=== PATIENT | male | born 1970 | race Caucasian/White ===

== ENCOUNTER 2019-03-17 17:04 | Outpatient (REF) | payer MEDICAID, SELFPAY ==
[2019-03-17 19:03] LABS: Hemoglobin A1C 5.6 % (4.5-6.2)
[2019-03-17 19:14] LABS: Anion Gap 10.8 mmol/L (3-11); BUN 13 mg/dL (7-18); CO2 27.2 mmol/L (21.0-32.0); CREATININE 1.09 mg/dL (0.70-1.30); Calcium 9.1 mg/dL (8.5-10.1); Chloride 105 mmol/L (98-107); Glucose 95 mg/dL (70-100); Sodium 143 mmol/L (136-145); TSH 1.54 uIU/mL (0.358-3.74)
== END 2019-03-17 17:24 ==
LOC: NCHCN 17:04
PROVIDERS: PCP Physician Assistant; Visit Provider Physician Assistant Medical
DX: I10 Essential (primary) hypertension (principal)
CPT/HCPCS: 80048; 83036; 84443

== ENCOUNTER 2019-03-20 11:13 | Outpatient (CLI) | payer MEDICAID, SELFPAY ==
--- NOTE | 2019-03-20 11:00 | DI.RAD_ITS ---
SYMPTOM/DIAGNOSIS: F/U LEFT WRIST: 03/20 Three views were obtained. The wrist is in a splint. No previous films available for comparison. There is moderately displaced, moderately comminuted fracture of the distal radius with associated ulnar styloid fracture.
== END 2019-03-20 11:33 ==
PROVIDERS: PCP Physician Assistant Medical; Visit Provider Orthopaedic Surgery
DX: S52.512A Displaced fracture of left radial styloid process, initial encounter for closed fracture (principal); S52.612A Displaced fracture of left ulna styloid process, initial encounter for closed fracture
CPT/HCPCS: 73110

== ENCOUNTER 2019-04-10 10:13 | Outpatient (CLI) | payer MEDICAID, SELFPAY ==
--- NOTE | 2019-04-10 09:57 | DI.RAD_ITS ---
SYMPTOM/DIAGNOSIS: F/U LEFT WRIST: Images obtained out of the cast demonstrate early healing with no interval change in the appositional alignment of the distal radial fracture fragments. Again noted is a fracture of the ulnar styloid.
== END 2019-04-10 10:33 ==
PROVIDERS: PCP Physician Assistant Medical; Visit Provider Orthopaedic Surgery
DX: S52.512D Displaced fracture of left radial styloid process, subsequent encounter for closed fracture with routine healing; S52.612D Displaced fracture of left ulna styloid process, subsequent encounter for closed fracture with routine healing
CPT/HCPCS: 73100

== ENCOUNTER 2021-05-31 16:24 | Outpatient (REF) | payer MEDICAID, SELFPAY ==
[2021-05-31 20:43] LABS: Hemoglobin A1C 5.8 % (<5.7)
[2021-05-31 21:00] LABS: ALT 63 U/L (16-63); AST 29 U/L (15-37); Albumin 3.9 g/dL (3.4-5.0); Alkaline Phosphatase 78 U/L (46-116); Anion Gap 8.4 mmol/L (3-11); BUN 13 mg/dL (7-18); Bilirubin, Total 0.4 mg/dL (0.2-1.0); CO2 28.6 mmol/L (21.0-32.0); Calcium 8.7 mg/dL (8.5-10.1); Chloride 106 mmol/L (98-107); Glucose 88 mg/dL (74-106); LDL CHOLESTEROL 87 mg/dL (<100); Potassium 4.4 mmol/L (3.5-5.1); Sodium 143 mmol/L (136-145); TSH (W/Ref FT4) 1.84 uIU/mL (0.36-3.74); Total Protein 7.2 g/dL (6.4-8.2)
== END 2021-05-31 16:25 | disposition home or self-care (01) ==
LOC: NCHCN 16:24
PROVIDERS: PCP Physician Assistant Medical; Visit Provider Physician Assistant
DX: E66.9 Obesity, unspecified (principal); I10 Essential (primary) hypertension
CPT/HCPCS: 80053; 83721; 83036; 84443

== ENCOUNTER 2022-08-01 15:00 | Outpatient (CLI) | payer MEDICAID, SELFPAY ==
--- NOTE | 2022-08-01 13:30 | DI.RAD_ITS ---
Exam(s) XR KNEE LT 2V AP,LAT EXAM: XR KNEE LT 2V AP,LAT CLINICAL HISTORY: left knee pain. TECHNIQUE: 2D digital imaging was performed of the left knee. Two images were obtained. AP and lat eral views were obtained. COMPARISON: No exams were available for comparison FINDINGS: BONES: There is an osseous fragment inferior to the patella. The soft tissue shadow representing th e patellar ligament appears thickened and discontinuous suspicious for a tear. The patella has a bassam ewhat high riding location. There is soft tissue swelling anterior to the knee. No bony destructive lesion is seen. JOINTS: No significant joint effusion is seen. SOFT TISSUE: There is swelling of the prepatellar soft tissues. IMPRESSION: Findings suspicious for patellar ligament tear and patellar fracture. Please correlate clinically. MRI of the knee should be considered for further evaluation. DATA REPOSITORY: RADIATION DOSE DELIVERED:
== END 2022-08-01 15:01 | disposition home or self-care (01) ==
LOC: DIORS 15:01
PROVIDERS: PCP Physician Assistant; Referring Provider Physician Assistant; Visit Provider Student in an Organized Health Care Education/Training Program
DX: M25.562 Pain in left knee (principal); R93.6 Abnormal findings on diagnostic imaging of limbs
CPT/HCPCS: 73560

== ENCOUNTER → 2022-08-02 01:28 | Outpatient (CLI) | payer MEDICAID, SELFPAY ==
--- NOTE | 2022-08-02 07:00 | DI.MRI_ITS ---
Exam(s) MR LOWER JOINT LT WO EXAM: MR LOWER JOINT LT WO CLINICAL HISTORY: multiligament knee injury,lt knee dislocation,avulsion lt patellar tendon,. TECHNIQUE: Multiplanar multisequence MRI was performed. COMPARISON: CR XR KNEE LT 2V AP,LAT from 08/01/2022 FINDINGS: BONES: There is no fracture or contusion pattern. JOINTS: There is a small cartilage defect and subchondral edema in the lateral patellar facet. There is a moderate joint effusion. TENDONS: Extensor mechanism: There is a complete tear of the inferior patellar tendon. Medial retinaculum: There is a tear of the medial retinaculum. Lateral retinaculum: Unremarkable. Popliteus: Unremarkable. MUSCLES: There is mild edema seen in the inferior portion of the vastus lateralis muscle. MENISCI: The medial meniscus is unremarkable. The lateral meniscus is unremarkable. SOFT TISSUES: There is edema seen in the soft tissues surrounding the knee. There is a large amount o f fluid seen anterior to the patella. LIGAMENTS: Anterior Cruciate: Unremarkable. Posterior Cruciate: Unremarkable. Medial Collateral:Unremarkable. Lateral Collateral: Unremarkable. OTHER: IMPRESSION: 1. Complete tear of the inferior patellar tendon. 2. Tear of the lateral retinaculum. 3. No evidence of a meniscal or cruciate/collateral ligament tear. 4. Moderate effusion and marked soft tissue edema. DATA REPOSITORY:
== END ==
PROVIDERS: PCP Physician Assistant; Visit Provider Student in an Organized Health Care Education/Training Program
DX: S83.105A Unspecified dislocation of left knee, initial encounter (principal); X58.XXXA Exposure to other specified factors, initial encounter
CPT/HCPCS: 73721

== ENCOUNTER 2022-08-03 11:59 | Day surgery (SDC) | payer MEDICAID, SELFPAY ==
[2022-08-03] VITALS (10 sets, daily range): BP systolic 103–169; BP diastolic 46–97; PULSE 50–81; RESP 10–18; TEMP 36.1–37.1; O2SAT 92–98; BMI 37.3
--- NOTE | 2022-08-03 13:15 | RT.EKG_ITS ---
APPROVED REPORT Exam: Resting ECG Reason for Exam: Irregular HR Patient Location: O HR:68 bpm ECG Measurements Heart Rate 68 AXIS MT 186 P 31 QRSd 89 QRS 12 QT 425 T 33 QTc 449 Conclusion Sinus rhythm...normal P axis, V-rate 60- 99 Multiform ventricular premature complexes...short R-R, variable morphology
--- NOTE | 2022-08-03 13:50 | ANES.PREOP_ITS ---
General Info Date of Service Date Performed: 08/03/22 Height: 6 ft 10 in Weight: 162 kg Body Mass Index (BMI): 37.3 Surgical Procedure: Operation Date: 08/03/22 15:10 Proposed Procedure Side Surgeon p Knee Ruptured Patellar Tendon Repair Left Ulises Singh MD Meds Allergies and Home Medications Allergies Allergy/AdvReac Type Severity Reaction Status Date / Time acetaminophen [From Percocet] AdvReac skin Verified 08/02/22 15:11 oxycodone [From Percocet] AdvReac skin Verified 08/02/22 15:11 Home Medication Medication Instructions Recorded aspirin 81 mg tablet,delayed 81 mg PO BID Prevent blood clot 30 08/03/22 release days #60 tabs hydromorphone 2 mg tablet 2 mg PO Q4H PRN severe pain #12 08/03/22 (Dilaudid) tabs naproxen 250 mg tablet 250 - 500 mg PO BID PRN #40 tabs 08/03/22 Current Visit Medications: Current Medications Generic Name Dose Route Start Last Admin Trade Name Freq PRN Reason Stop Dose Admin Hydromorphone HCl 2 mg 08/03/22 12:19 Hydromorphone 2 Mg Tab PO Q3H PRN PRN Cefazolin Sodium 3,000 mg/ 100 mls @ 200 mls/hr 08/03/22 12:00 Sodium Chloride IVPB 08/03/22 18:00 PREOP HOMERO Ringer's Solution 1,000 mls @ 30 mls/hr 08/03/22 06:00 IV 09/02/22 23:59 INFUSION [facility] IV Miscellaneous Supplies 1 each 08/03/22 06:00 Iv Access IV 09/02/22 23:59 DIRECTED HOMERO Sodium Chloride 0 ml 08/03/22 06:00 Normal Saline Flush 10 Ml Syr IV 09/02/22 23:59 PRN PRN Sodium Chloride 0 ml 08/03/22 06:00 Normal Saline 10 Ml Vial IJ 09/02/22 23:59 DIRECTED PRN Sterile Water 0 ml 08/03/22 06:00 Water,Injection,Sterile 10 Ml Vial IJ 09/02/22 23:59 DIRECTED PRN PFSH Active Problems Active Problems: Problem Status Onset Code Avulsion of left patellar tendon 07/26/22 S86.892A Dislocation of patella, left, closed 07/26/22 S83.005A Medical History Medical History Fracture of distal end of left radius and ulna Surgical History Surgical History History of hernia surgery umbilical and inguinal bilateral Hx of cervical spine surgery 4 fused vertebra Tobacco Smoking/Tobacco Use Status: Never Alcohol Alcohol Intake: current Alcohol intake frequency: a few times a week Alcohol type: hard liquor Substance Use Substance use: Occasionally Substance use type: marijuana Details: CBD Gummy 3nights ago Vital Signs and Lab Results Vital Signs Most Recent Vital Signs in EMR: Most Recent Vital Signs Temp Pulse Resp BP Pulse Ox 37.1 C 50 L 18 127/94 H 95 08/03/22 12:35 08/03/22 12:35 08/03/22 12:35 08/03/22 12:35 08/03/22 12:35 Lab Results Blood Type / Crossmatch: No Data to Display Complete Blood Count: No Data to Display Complete Metabolic Panel: No Data to Display Liver Function Panel: No Data to Display Coagulation Panel: No Data to Display Cardiac Panel: No Data to Display Arterial Blood Gas: No Data to Display Venous Blood Gas: No Data to Display Pancreas Panel: No Data to Display Thyroid Panel: No Data to Display Infectious Disease: No Data to Display Blood Cultures: No Data to Display Toxicology Panel: No Data to Display Imaging and Studies Imaging and Studies Study information below may be from another EMR and interpreted by another provider. Please see original notes in EMR for more complete details. EKG Summary: 08/15: sinus, PVCs. Anesthesia Assessment and Plan Anesthesia History Personal History: No History of Anesthesia Complications Family History: No Family History of Anesthesia Complications Exercise Tolerance Exercise Tolerance: Metabolic Equivalents>4 Cardiac & Pulmonary Exam Cardiac Exam: Normal S1/S2 Heart Sounds Pulmonary Exam: Clear Bilateral Breath Sounds Implantable Cardiac Device Does patient have a Pacemaker or an ICD?: No Airway Exam Known Difficult Airway: No Mallampati Class: 3 Mouth Opening: Narrow (< 3cm) Thyromental Distance: Greater than 3 cm Neck Range of Motion: Full ROM Neck Circumference: Thick Teeth Condition: Normal Dentition and Generalized Poor Dentition ASA Classification ASA Score: ASA 3 Emergency Case?: No NPO Status NPO Status: NPO Clears >2 hours, Solids >8 hours Anesthesia Plan Resuscitation Status: Full Code Anesthesia Technique: General Anesthesia Airway Planned: Endotracheal Tube Pain Management: Surgeon and patient request nerve block Monitors Used: Standard Monitors Preoperative Comments:: 52 yo male with torn patellar tendon. Sig PMHx: never smoker, occ EtOH/cannabis, c spine fusion (good range of motion.
[2022-08-03] MEDS: Lactated Ringers 1,000 ML 30 ML IV (13:54)
--- NOTE | 2022-08-03 14:28 | W.ANESNERVE ---
Nerve Block Single Injection Procedure Date and Time Date Performed: 08/03/22 Procedure Start: 14:10 Location Where Procedure Performed Procedure Location: Day Surgery Unit Reason Performed: Postoperative Analgesia Requesting Provider: Ulises Singh Timeout Performed Timeout Performed: Yes Monitoring Used ECG, Blood Pressure and SpO2 Sterility Sterility: Hand Hygiene, Surgical Cap, Surgical Mask, Sterile Gloves and Chlorhexidine Sedation Given During Procedure Sedation Given (Indicate Dose Given): No Sedation given Patient Mental Status Patient Mental Status: Awake Nerve Block 1st Nerve Block: Laterality: Left Block Type: Adductor Canal Needle / Catheter Used: 120mm SonoPlex II Local Anesthetic Bolus (Indicate Dose Given): Lidocaine used for local infiltration of skin and Bupivacaine 0.375% Dose:: 10 mL Additives (Indicate Dose Given): None Ultrasound: Sterile probe cover and gel used Ultrasound Image Saved?: Yes Nerve Stimulator: Supplement to Ultrasound use Paresthesia: None Procedure Tolerated: No Complications Procedure Outcome: Successful Performed By: Aram Evans
[2022-08-03] MEDS: ceFAZolin 3,000 MG in Normal Saline 100 ML 200 MG IVPB (14:45)
[2022-08-03] MEDS: Bupivacaine 0.5% Pres-Free W/EPI 30 ML VIAL (15:14)
--- NOTE | 2022-08-03 16:40 | W.PM.DSUDISC ---
Date of service: 08/03/22 Time of Service: 16:40 Discharge Plan Disposition Patient Disposition: HOME Condition: Good Discharge Details Reason For Visit: Left knee surgery Attending Provider: Ulises Singh Primary Care Provider: Kailey Martinez Home Meds and New Rx's Prescriptions: New aspirin 81 mg tablet,delayed release (DR/EC) 81 mg PO BID 30 Days Qty: 60 0RF naproxen 250 mg tablet 250 - 500 mg PO BID PRNQty: 40 0RF Rx Instructions: take with a meal hydromorphone [Dilaudid] 2 mg tablet 2 mg PO Q4H MDD 12 mg PRN (Reason: severe pain) Qty: 12 0RF Discontinued ibuprofen 200 mg capsule 200 mg PO Q6H PRN Discharge Instructions Additional Instructions: Surgery: Left knee patellar tendon repair Activity: Weightbearing in full extension only. Use crutches and knee brace for support. Maintain knee straight at all times. A physical therapy prescription will be provided separately in the office at follow-up. Prescriptions: Aspirin 81 mg take 1 twice daily to prevent a blood clot for 30 days Naproxen 250 mg take 1-2 every 12 hours with a meal as needed for moderate pain Hydromorphone 2 mg take 1 every 4 hours as needed for severe pain You may use [id number] Tylenol (acetaminophen) as needed for mild pain. These pain medications may be taken all at once or in different combinations as needed. Also, recommend Colace (docusate) as a stool softener as surgery and pain medicine cause constipation. You may try [id number] diphenhydramine (Benadryl) 25-50 mg nightly as a sleep aid Dressings: Leave Band-Aid in place until follow-up. Keep clean and dry at all times. You may loosen, adjust, or unwrap Duy bandages. Follow-up: 10-[address] Singh You may take off the leg compression stockings this evening at home. You may also leave them on a few days longer if you have a history of leg swelling or edema. Let us know right away if you develop any redness, drainage, fevers, chest pain, or trouble breathing. Do not drink alcohol or drive for at least 24 hours after anesthesia. Please call the office during business hours with any questions or concerns. Discharge Orders Discharge Orders: Discharge Order (Routine); Ordered 08/03/22 Ordered By: Ulises Singh DS: Diagnosis Discharge Diagnosis (1) Avulsion of left patellar tendon: Status: Acute (2) Dislocation of patella, left, closed: Status: Acute
[2022-08-03] MEDS: HYDROmorphone 2 MG/ML SYR IVP ×4 (16:45→17:15)
--- NOTE | 2022-08-03 16:50 | ROE_ITS ---
Date of service: 08/03/22 Time of Service: 16:00 Operative Note Operative Note DATE OF PROCEDURE: 08/03/22 PRE-OP DIAGNOSIS: Left patellar tendon rupture POST-OP DIAGNOSIS: same PROCEDURE: Left patellar tendon repair, CPT #77608 SURGEON: Ulises Singh LITIGATION SPECIALIST: Marissa Norton ANESTHESIA TYPE: Local By Surgeon, General LMA/ETT and Primary Nerve Block Refer to Anesthesia Record ESTIMATED BLOOD LOSS: 30 TOURNIQUET TIME: 0 COMPLICATIONS: None Patient was transported to: PACU Patient's condition: stable Implants: Arthrex 4.75 mm SwiveLock x2 Indications: Please see complete medical record for details. Findings: Complete disruption mid to proximal patellar tendon with extension far medial and lateral retinacular gutters Procedure Description: In the operating room, general anesthesia was induced. The patient was positioned supine on the operating room table. All bony prominences were well- padded. Preoperative antibiotics were administered. The left knee was prepped and draped in the usual sterile fashion. The correct patient, procedure, and side of the procedure were all verified prior to incision. Local anesthetic 0.5% bupivacaine with epinephrine was per injected 30 cc along the longitudinal planned surgical site. The direct anterior approach was taken centered over the patellar tendon disruption down towards the tibial tubercle and over the patella. The ends of the patella and patellar tendon were exposed and lightly debrided. Hemorrhage and fibrinous material was irrigated out of the knee. There was significant tendon fraying and disruption that was somewhat mid substance on the superficial layers and laterally and more proximal deeply and medial. The inferior aspect of the patella was prepared to optimize bone tendon healing with a rongeur. A suture tape was then used to run a Krak?w locking stitch up and down the distal aspect of the tendon medially and then again laterally with the 4 suture tails exiting the tendon at the locations for planned suture anchor repair. The proximal tendon was flipped out of the way in the inferior aspect of the patella predrilled with a 3.5 mm drill to about 20 mm depth and then the SwiveLock tap was used in the hard bone. The knee was placed in full extension and the patella maintained stable and distal while the lateral and then medial repair sutures were secured with good fixation to the SwiveLock anchors. There was reasonable tendon apposition laterally and good tendon apposition medially. The suture tape tails were then passed from deep to superficial and then medial and lateral ends tied securely knotted over the anterior aspect of the tendon to prevent sliding through the suture anchor. Each double loaded suture anchor FiberWire was then used to augment the repair. The blue sutures from each were shuttled from deep to superficial. A free needle was then used to run the white sutures from the suture anchor back through the Krak?w distally and secured with horizontal mattress ripstop type sutures achieving good tendon bone fixation without gapping. Lastly the superficial layers of the tendon especially lateral redraped over the repair and the blue suture tails were passed distally over the top in a barn door style configuration and then secured to themselves horizontally distally. Suture tape was then used in a [id number] fashion to repair the medial and lateral retinaculum and insignificant strength to the repair construct. Given the significance of injury the repair was quite good and stable without gapping to about 30 degrees of flexion. The wound was copiously irrigated normal saline. Deepest layers were closed using 0 Vicryl. 2 Monocryl was used to close subcutaneous and skin with 3-0 Monocryl running. Skin glue, Mepilex bandage applied and the knee gently wrapped in an Duy bandage. A long-leg knee brace was fit and applied in full extension. The patient awoke from anesthesia without complication and was transferred to the recovery room in a stable condition.
[2022-08-03] MEDS: Normal Saline 10 ML VIAL IJ (17:10)
[2022-08-03] MEDS: ACETAMINOPHEN 1,000 MG/100 ML BTL 400 MG IVPB (17:15)
--- NOTE | 2022-08-03 17:44 | W.ANESPOSTOP ---
Postoperative Evaluation Date, Time and Location Date Performed: 08/03/22 Time Performed: 17:45 Patient Location: PACU Vital Signs Most Recent Imported Vital Signs: Most Recent Vital Signs Temp Pulse Resp BP Pulse Ox 36.5 C 68 11 L 115/58 L 92 08/03/22 17:30 08/03/22 17:30 08/03/22 17:30 08/03/22 17:30 08/03/22 17:30 Pain Score Most Recent Pain Score: Most Recent Pain Score Pain Level 5 08/03/22 17:30 Assessment Mental Status: Awake (Alert & Oriented to Patient Baseline) Airway and Respiratory Function: Patent airway with normal (patient baseline) respiratory exam Cardiovascular Function: Hemodynamically Stable Hydration Status: Adequately Hydrated Nausea & Vomiting: No Nausea or Vomiting Pain: Pain is tolerable per patient Peripheral Nerve Block: Regional nerve block not resolved at time of post operative discharge
== END 2022-08-03 18:57 | disposition home or self-care (01) ==
LOC: SUR 12:20 → MS 17:42
PROVIDERS: PCP Physician Assistant; Visit Provider Student in an Organized Health Care Education/Training Program
PROC: (CPT 27380; principal; 2022-08-03 15:00)
DX: S86.812A Strain of other muscle(s) and tendon(s) at lower leg level, left leg, initial encounter (principal); S83.005A Unspecified dislocation of left patella, initial encounter; X50.9XXA Other and unspecified overexertion or strenuous movements or postures, initial encounter
CPT/HCPCS: 27380; 76942; 93005; 93010; J0131; J0690; J1100; J1170; J1885; J2405; J2704

== ENCOUNTER 2022-10-03 17:21 | Outpatient (REF) | payer MEDICAID, SELFPAY ==
[2022-10-03 18:20] LABS: Abs Immature Grans 0.02 10^3/uL (0.0-0.06); Absolute Basophil Count 0.08 10^3/uL (0.0-0.2); Absolute Eosinophil Count 0.44 10^3/uL (0.0-0.7); Absolute Lymphocyte Count 2.18 10^3/uL (1.2-3.4); Absolute Monocyte Count 0.64 10^3/uL (0.1-0.8); Absolute Neutrophil Count 4.84 10^3/uL (1.2-6.7); Eosinophils % 5.4; HCT 46.5 % (40.0-50.0); HGB 15.4 g/dL (13.5-17.5); Immature Grans % 0.2; Lymphocytes % 26.6; MCH 27.6 pg (27.0-33.0); MCHC 33.1 % (32.0-36.0); MCV 84 fL (80-95); MPV 9.7 fL (8.0-11.0); Monocytes % 7.8; Platelet Count 297 10^3/uL (130-400); RBC 5.57 10^6/uL (4.36-5.78); RDW 12.1 % (11.8-14.1)
[2022-10-03 18:37] LABS: ALT 48 U/L (16-63); AST 28 U/L (15-37); Alkaline Phosphatase 68 U/L (46-116); Anion Gap 4.7 mmol/L (3-11); BUN 10 mg/dL (7-18); Bilirubin, Total 0.6 mg/dL (0.2-1.0); CO2 29.3 mmol/L (21.0-32.0); Calcium 8.7 mg/dL (8.5-10.1); Chloride 103 mmol/L (98-107); Glucose 102 mg/dL (74-106); Sodium 137 mmol/L (136-145)
[2022-10-03 20:16] LABS: Hemoglobin A1C 5.5 % (<5.7)
== END 2022-10-03 17:22 | disposition home or self-care (01) ==
LOC: NCHCN 17:21
PROVIDERS: PCP Physician Assistant; Visit Provider Physician Assistant
DX: I10 Essential (primary) hypertension (principal); E66.9 Obesity, unspecified
CPT/HCPCS: 80053; 83036; 85025

== ENCOUNTER 2023-06-24 08:46 | Inpatient (IN) | payer MEDICAID, SELFPAY ==
[2023-06-24] VITALS (7 sets, daily range): BP systolic 127–179; BP diastolic 59–89; PULSE 71–89; RESP 18–20; TEMP 37.1–39.1; O2SAT 92–97
--- NOTE | 2023-06-24 08:52 | W.ED.GENAD ---
Discharge Plan Disposition Patient Disposition: Admit to [facility] Discharge Details Clinical Impression: Cellulitis of right lower leg, PAKO (acute kidney injury) Admit Date/Time: 06/24/23 11:49 Admit Provider: Carlos Olmstead Attending Provider: Carlos Olmstead Primary Care Provider: Kailey Martinez ED Provider: Chauncey Gunn [facility] General Date/Time Provider Initiated Documentation: 06/24/23 08:52. HPI Narrative: HPI This is a 53-year-old male arrived to the emergency department via private vehicle in the setting of right leg swelling. Patient was seen reportedly 2 days ago at [facility] and he had a CT scan and a duplex study performed. CT scan was reportedly reassuring and the duplex study was reportedly negative for DVT. He had worsening swelling and pain despite outpatient cephalexin and trimethoprim/sulfamethoxazole. 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 He is not a smoker nor drinker. He has no history of diabetes. He denies chest pain shortness of breath PE history of DVT history. He has not been nauseous nor vomiting. He has been adherent with his outpatient antibiotics. Exam General: Well-appearing in no acute distress speaking in complete sentences. Head: Normocephalic, atraumatic. Eye: Extraocular eye movements intact. No conjunctival injection. No scleral icterus. Ear, nose, mouth, throat: Grossly normal inspection. Normal voice, handling secretions normally. Neck: Trachea midline. Cardiovascular: Well-perfused distal extremities. Respiratory: Nonlabored respiration. Gastrointestinal: Nondistended abdomen. Musculoskeletal: No edema. Moving all 4 extremities spontaneously. Skin: Right lower extremity with distal erythema warmth inferior to the right knee tracking down into the right foot over the medial malleolus. Area is warm there is 1 bullae. No crepitance. No pain out of proportion. Photo of rash on patient's cell phone from 2 days ago: Photo of rash today as follows: Patient's right foot warm well perfused. Cap refill less than 2 seconds in the right toes. Neurologic: Alert and appropriate, no apparent acute deficits. Psychiatric: Mood and manner are appropriate. Grooming and personal hygiene are appropriate. MDM This is an overall well-appearing normothermic and not tachycardic 53-year-old male failing outpatient treatment for right lower extremity cellulitis with cephalexin and trimethoprim/sulfamethoxazole for which he will require hospitalization. Given the patient's elevated BMI and his significant tenderness on palpation will obtain a CT of his right lower extremity to assess for any signs of necrotizing soft tissue infection. Patient's vital signs are not consistent with SIRS criteria and he does not appear systemically ill so I did not order blood cultures nor check a lactate. We will treat with vancomycin and cefepime. I considered DVT however the patient reportedly had a negative duplex study 2 days ago and has no history of prior DVTs. Given that formal ultrasound is not available today is not unreasonable to initiate treatment for DVT with enoxaparin 1 mg/kg and to consider repeat formal right lower extremity duplex tomorrow with radiology. We will touch base with the hospitalist and defer these decisions at this point time. We will assess basic electrolytes. 9:37 AM CBC showing no significant leukocytosis. No anemia no thrombocytopenia. 9:45 AM Normal magnesium. Basic metabolic panel showing mild hyponatremia. Mild hypokalemia with a potassium of 3.1. Given potassium greater than 3.0 will defer ECG at this point time. No anion gap. Patient does have an PAKO for which he will receive 1 L of IV fluids. Creatinine 1.88, 2 days hyperglycemia but with no anion gap and normal bicarbonate not consistent with DKA. Of note patient received a CTA to assess for PE 2 days ago and he reportedly required an additional dose of IV contrast. 10:[address] scan from [facility] dated 2 days ago showing no evidence of PE. Right lower extremity duplex study showing no sonographic evidence of DVT. MDM from provider showing patient received 2 g of ceftriaxone and was placed on cephalexin 500 mg 4 times daily for 10 days along with trimethoprim/sulfamethoxazole twice daily. Patient at that point had a white count of 23. 11:[address] scan showing inflammatory changes in the subcutaneous flap of the lower extremity. No fluid collection. No obvious soft tissue gas on my interpretation. I spoke to Dr. Arrington who agreed graciously to accept the patient for hospitalization. Chronic conditions affecting the care of the patient: Obesity History obtained from an outside historian: Patient's External record review: No [facility] EMR records Medications: Antibiotics Social determinants of health affecting disposition: N/A Management discussed with: Hospitalist Treatment/interventions considered: Discharge but deferred given failed outpatient management Response to therapies provided: N/A Related Data Home Medications Medication Instructions Recorded Confirmed ibuprofen 200 mg capsule 200 mg PO Q6H PRN 08/15/22 06/24/23 amlodipine 2.5 mg tablet 2.5 mg PO DAILY 11/15/22 06/24/23 chlorthalidone 25 mg tablet 25 mg PO DAILY 12/08/22 06/24/23 cephalexin 500 mg capsule 500 mg PO DAILY 06/24/23 06/24/23 Allergies Allergy/AdvReac Type Severity Reaction Status Date / Time cat dander Allergy Unverified 06/24/23 09:46 acetaminophen [From Percocet] AdvReac skin Verified 06/24/23 09:46 oxycodone [From Percocet] AdvReac skin Verified 06/24/23 09:46 PFSH All Active Problems (Updated 06/24/23 @ 13:44 by Carlos Olmstead MD) Sepsis due to cellulitis (Acute) Cellulitis of right lower leg (Acute) PAKO (acute kidney injury) (Acute) Benign essential HTN (Acute) GERD (gastroesophageal reflux disease) (Chronic) Obesity (Chronic) Osteoarthritis of neck (Acute) Hemorrhoids (Acute) Pain in right forearm (Acute) Pain in right shoulder (Acute) Patellar tendinitis, right knee (Acute) Avulsion of left patellar tendon (Acute 07/26/22) Medical History Dental caries Fracture of distal end of left radius and ulna Posttraumatic stress disorder Surgical History History of hernia surgery umbilical and inguinal bilateral Hx of cervical spine surgery 4 fused vertebra Social History Smoking/Tobacco Use Status: Never Smoking risk assessment performed?: Yes Alcohol Intake: current Alcohol Intake frequency: a few times a week Alcohol type: hard liquor Drug use: Occasionally Substance use type: marijuana Details: LASHAWN Ta 3nights ago Housing: house Current gender identity: male Do you feel safe at home: Yes Do you feel safe in your relationship?: Yes
--- NOTE | 2023-06-24 09:00 | DI.CT_ITS ---
Exam(s) CT LOWER EXTREMITY RT WO EXAM: CT LOWER EXTREMITY RT WO CLINICAL HISTORY: Right lower extremity swelling. TECHNIQUE: Imaging Protocol: Axial computed tomography images with coronal and sagittal reformatted images were created and reviewed. CONTRAST MATERIAL: Intravenous: None COMPARISON: No exams were available for comparison FINDINGS: There are no fractures evident.. No prominent knee joint effusion. There is inflammatory subcutaneous streaking in the subcutaneous fat of the entire lower leg and exte nding into the ankle and foot. This is most prominent anterolaterally. No radiopaque foreign body s een. No distinct abscess seen. IMPRESSION: Inflammatory changes in subcutaneous fat which either represents cellulitis pattern and/or edema. Th ere is no discrete focal abscess. There is no radiopaque foreign body. No fractures nor osteomyelitis evident. RADIATION DOSE DELIVERED: 551.11mGy.cm Total DLP DATA REPOSITORY: All CT scans at this facility are submitted to the National Radiology Data Registry (NRDR) Dose Index Registry (DIR) with the [employer] (ACR). RADIATION OPTIMIZATION: All CT scans at this facility use at least one of these dose optimization te chniques: automated exposure control; mA and/or kV adjustment per patient size (includes targeted exa ms where dose is matched to clinical indication); or iterative reconstruction.
[2023-06-24 09:25] LABS: Absolute Basophil Count 0.09 10^3/uL (0.0-0.2); Absolute Lymphocyte Count 1.09 10^3/uL (1.2-3.4); Absolute Monocyte Count 1.09 10^3/uL (0.1-0.8); Absolute Neutrophil Count 14.88 10^3/uL (1.2-6.7); Basophils % 0.5; Eosinophils % 0.6; HCT 43.3 % (40.0-50.0); HGB 14.5 g/dL (13.5-17.5); Immature Grans % 0.6; Lymphocytes % 6.3; MCH 28.3 pg (27.0-33.0); MCHC 33.5 % (32.0-36.0); MCV 84 fL (80-95); Monocytes % 6.3; Neutrophils % 85.7; Platelet Count 249 10^3/uL (130-400); RBC 5.13 10^6/uL (4.36-5.78); RDW 13.2 % (11.8-14.1); RDW-SD 41.1 fL; WBC 17.36 10^3/uL (4.4-10.8)
[2023-06-24 09:35] LABS: Anion Gap 6.4 mmol/L (3-11); BUN 21 mg/dL (7-18); CO2 31.6 mmol/L (21.0-32.0); CREATININE 1.6 mg/dL (0.70-1.30); Calcium 9.3 mg/dL (8.5-10.1); Chloride 95 mmol/L (98-107); Estimated GFR 50.88 (mL/min/1.73m2); Glucose 125 mg/dL (74-106); Magnesium 2.1 mg/dL (1.8-2.4); Potassium 3.1 mmol/L (3.5-5.1); Sodium 133 mmol/L (136-145)
[2023-06-24] MEDS: CEFEPIME 2 GM in Normal Saline 100 ML IVPB ×3 (09:35→21:16)
[2023-06-24] MEDS: Normal Saline 1,000 ML 1000 ML IV (10:10)
[2023-06-24] MEDS: VANCOMYCIN/WATER (PEG) 2 GM/400 ML BAG IVPB (10:10)
[2023-06-24] MEDS: fentaNYL 100 MCG/2 ML VIAL 50 MCG IVP (10:23)
--- NOTE | 2023-06-24 11:08 | DI.VRAD_ITS ---
PROCEDURE INFORMATION: Exam: CT Right Lower Extremity Without Contrast; Lower Leg Exam date and time: 06/24/2023 10:35 AM Age: 53 years old Clinical indication: Pain; Other: Right lower extremity swelling and redness TECHNIQUE: Imaging protocol: CT of the right lower extremity without contrast was performed. Exam focused on the lower leg. COMPARISON: No relevant prior studies available. FINDINGS: Bones/joints: No acute fracture. Soft tissues: Inflammatory changes in the subcutaneous fat of the lower extremity. This may represent cellulitis and/or edema.. Other findings: No loculated fluid collection identified.. IMPRESSION: 1. Inflammatory changes in the subcutaneous fat of the lower extremity. This may represent cellulitis and/or edema.. 2. No loculated fluid collection identified.. Dictated and Authenticated by: Renuka Jara MD. Ordering:DARIUS Grossman MD
--- NOTE | 2023-06-24 11:52 | W.PM.HP.N ---
Date of service: 06/24/23 Time of Service: 11:52 Assessment and Plan Assessment and plan (1) Sepsis due to cellulitis: Status: Acute Assessment and plan: -patient met sepsis criteria with WBC of 17 and fever of 101.3oF upon arrival to med/surg -cellulitis of RLE appears worse as compared to pictures from previous day provided by patient (please see ED note for uploaded pictures) -patient was initially on bactrim and keflex as outpatient -LE venous duplex ordered for Sunday, though treatment dose anticoagulation not ordered as patient did have negative study just two days ago and does not complain of any chest pain, SOB, or tachycardia (2) PAKO (acute kidney injury): Status: Acute Assessment and plan: -baseline Cr 1, found to be 1.6 -likely due to combination of infection, IV contrast given at outside hospital, and taking home chlothalidone -s/p 1L IVF in ED -f/u AM BMP (3) Benign essential HTN: Status: Acute Assessment and plan: -continue home almodipine -hold home chlorthalidone until PAKO improves (4) Obesity: Status: Chronic History of Present Illness Narrative: 53-year-old male with a past medical history of hypertension and GERD presents to the emergency department with complaints of worsening right lower extremity swelling. Patient states that he was seen at [facility] 2 days prior had a CT and a duplex study of the right lower extremity should not show any abscesses or DVT. He was discharged with Keflex and Bactrim however, he states that the redness and swelling of his right lower extremity have become significantly worse. He denies any lightheadedness, dizziness, shortness of breath, fever. In the emergency department the patient had normal vital signs, CBC showed a white count of 17.3 which is reportedly lower than when he was seen in [facility] where his white blood cell count was in the 20s. Additionally, BMP showed potassium of 3.1, and a creatinine of 1.6 (baseline of 1). Additionally, the patient showed images of his right lower extremity from 2 days prior and does not look worse in the emergency department as compared to that time (please see emergency room physician's note for uploaded pictures). A noncontrast CT of the right lower extremity was performed in the emergency department and showed inflammatory changes in the subcu fat of the lower extremity representing cellulitis or edema but no loculated fluid. Given that it is the weekend lower extremity duplex study is not available. Emergency room physician started patient on vancomycin and cefepime and paged hospitalist for admission for patient with failed outpatient therapy of right lower extremity cellulitis and acute kidney injury. Review of Systems All systems reviewed & are unremarkable except as noted in HPI and below PFSH All Active Problems (Updated 06/24/23 @ 13:44 by Carlos Olmstead MD) Sepsis due to cellulitis (Acute) Cellulitis of right lower leg (Acute) PAKO (acute kidney injury) (Acute) Benign essential HTN (Acute) GERD (gastroesophageal reflux disease) (Chronic) Obesity (Chronic) Osteoarthritis of neck (Acute) Hemorrhoids (Acute) Pain in right forearm (Acute) Pain in right shoulder (Acute) Patellar tendinitis, right knee (Acute) Avulsion of left patellar tendon (Acute 07/26/22) Medical History Dental caries Fracture of distal end of left radius and ulna Posttraumatic stress disorder Surgical History History of hernia surgery umbilical and inguinal bilateral Hx of cervical spine surgery 4 fused vertebra Social History Smoking/Tobacco Use Status: Never Smoking risk assessment performed?: Yes Alcohol Intake: current Alcohol Intake frequency: a few times a week Alcohol type: hard liquor Drug use: Occasionally Substance use type: marijuana Details: CBD Gummy 3nights ago Current gender identity: male Do you feel safe at home: Yes Do you feel safe in your relationship?: Yes Meds Allergies and Home Medications Allergies Allergy/AdvReac Type Severity Reaction Status Date / Time cat dander Allergy Unverified 06/24/23 09:46 acetaminophen [From Percocet] AdvReac skin Verified 06/24/23 09:46 oxycodone [From Percocet] AdvReac skin Verified 06/24/23 09:46 Home Medications Medication Instructions Recorded Confirmed Type ibuprofen 200 mg capsule 200 mg PO Q6H PRN 08/15/22 06/24/23 History amlodipine 2.5 mg tablet 2.5 mg PO DAILY 11/15/22 06/24/23 History chlorthalidone 25 mg tablet 25 mg PO DAILY 12/08/22 06/24/23 History cephalexin 500 mg capsule 500 mg PO DAILY 06/24/23 06/24/23 History Exam Narrative Exam Narrative: Well appearing gentleman laying in bed in no acute distress, AOx4, heart RRR, lungs CTAB, abdomen soft, non-tender, non-distended, RLE with significant circumfrential warmth and erythema from just below the knee to just below the medial malleolus without fluctuation or drainage Results Labs 06/24/23 09:15 06/24/23 09:15 Labs: Laboratory Results - last 24 hr 06/24/23 06/24/23 09:15 09:15 WBC 17.36 H RBC 5.13 Hgb 14.5 Hct 43.3 MCV 84 MCH 28.3 MCHC 33.5 RDW 13.2 Plt Count 249 MPV 10.0 Immature Gran % 0.6 Neutrophils % 85.7 Lymphocytes % 6.3 Monocytes % 6.3 Eosinophils % 0.6 Basophils % 0.5 Nucleated RBC % 0.0 Absolute Neutrophils 14.88 H Absolute Lymphocytes 1.09 L Absolute Monocytes 1.09 H Absolute Eosinophils 0.10 Absolute Basophils 0.09 Sodium 133 L Potassium 3.1 L Chloride 95 L Carbon Dioxide 31.6 Anion Gap 6.4 BUN 21 H Creatinine 1.6 H Est GFR (CKD-EPI 2020) 50.88 Glucose 125 H Calcium 9.3 Magnesium 2.1 Last Vital Signs Temp 98.8 F 06/24/23 08:53 Pulse 83 06/24/23 08:53 Resp 18 06/24/23 08:53 BP 127/59 L 06/24/23 08:53 Pulse Ox 96 06/24/23 08:53 Time Spent Time spent with Patient: >75 minutes Time was spent: preparing to see the patient(eg.review tests), obtaining and/or reviewing separately otained hiistory, ordering medications,tests, procedures, referring, communicating with other health direct support professional caregiver, indepentently interpreting results, counseling the patient and care coordination
[2023-06-24] MEDS: Lactated Ringers 1,000 ML 150 ML IV (14:42)
[2023-06-24] MEDS: Normal Saline Flush 10 ML SYR IVP ×2 (14:45→15:01)
[2023-06-24] MEDS: MORPHine 2 MG/ML SYR 1 MG IVP (15:00)
[2023-06-24] MEDS: Enoxaparin 40 MG/0.4 ML SYR SC (15:01)
[2023-06-24] MEDS: VANCOMYCIN/WATER (PEG) 1.25 GM/250 ML BAG IV (15:51)
[2023-06-24] MEDS: Acetaminophen 325 MG TAB 650 MG PO (15:55)
[2023-06-25] VITALS (12 sets, daily range): BP systolic 123–161; BP diastolic 70–83; PULSE 62–77; RESP 18–20; TEMP 36.6–39.1; O2SAT 91–96
[2023-06-25] MEDS: Lactated Ringers 1,000 ML 150 ML IV ×2 (00:21→08:54)
[2023-06-25] MEDS: LORazepam 0.5 MG TAB PO (00:22)
[2023-06-25] MEDS: Acetaminophen 325 MG TAB 650 MG PO ×4 (00:32→22:11)
[2023-06-25] MEDS: VANCOMYCIN/WATER (PEG) 1.25 GM/250 ML BAG IV ×2 (02:57→16:52)
[2023-06-25] MEDS: MORPHine 2 MG/ML SYR 1 MG IVP ×2 (03:07→22:09)
[2023-06-25] MEDS: CEFEPIME 2 GM in Normal Saline 100 ML IVPB ×3 (06:50→22:09)
--- NOTE | 2023-06-25 07:00 | DI.US_ITS ---
Exam(s) US LOWER EXTREMITY VENOUS RT EXAM: US LOWER EXTREMITY VENOUS RT CLINICAL HISTORY: swelling, erythema, ? DVT TECHNIQUE: Grayscale, color, and doppler imaging of the deep venous system of the right lower extrem ity was performed. COMPARISON: US POCUS EXAM from 08/03/2022 FINDINGS: There is no evidence of intraluminal thrombus and there is normal compression and augmentation demons trated within the common femoral vein, femoral vein, and popliteal vein. In the ipsilateral calf the interrogated veins also exhibit normal compression/ augmentation properti es. The ipsilateral saphenofemoral junction is patent. Prominent lymph nodes in the right groin noted. Probably reactive. IMPRESSION: 1. No evidence of DVT in the right lower extremity. DATA REPOSITORY:
[2023-06-25 07:10] LABS: HCT 37.9 % (40.0-50.0); HGB 12.7 g/dL (13.5-17.5); MCH 28.5 pg (27.0-33.0); MCHC 33.5 % (32.0-36.0); MCV 85 fL (80-95); MPV 10.6 fL (8.0-11.0); Platelet Count 248 10^3/uL (130-400); RBC 4.45 10^6/uL (4.36-5.78); RDW 13.2 % (11.8-14.1); RDW-SD 41.9 fL; WBC 15.98 10^3/uL (4.4-10.8)
[2023-06-25 07:48] LABS: Anion Gap 7.3 mmol/L (3-11); BUN 16 mg/dL (7-18); CO2 29.7 mmol/L (21.0-32.0); CREATININE 1.4 mg/dL (0.70-1.30); Calcium 8.5 mg/dL (8.5-10.1); Chloride 95 mmol/L (98-107); Estimated GFR 59.73 (mL/min/1.73m2); Glucose 99 mg/dL (74-106); Magnesium 1.9 mg/dL (1.8-2.4); Sodium 132 mmol/L (136-145)
[2023-06-25 07:52] LABS: Potassium 2.8 mmol/L (3.5-5.1)
[2023-06-25] MEDS: amLODIPine 2.5 MG TAB PO (08:53)
[2023-06-25] MEDS: Potassium Chloride 20 MEQ TABCR 40 MEQ PO ×2 (08:53→22:09)
--- NOTE | 2023-06-25 09:42 | INITIAL_ITS ---
Date of service: 06/25/23 Time of Service: 09:42 Care Management Initial Assmt Initial Assessment REASON FOR HOSPITALIZATION:: Sepsis, failed o/p therapy of RLE cellulitis, PAKO PREVIOUS FUNCTIONAL STATUS/SOCIAL/FAMILY SUPPORTS:: Sonny lives in [place] with his , Taylor. They have 8 children; 5 are grown and out of the house, 2 still live in the house, and one recently, in April 2023. 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 His is a director of casework department for the same agency (not his director of casework department). He is independent at baseline in the community. CURRENT FUNCTIONAL STATUS:: Chuy was sitting up in bed when CM met with him. He stated that he is feeling good, although he expressed concern over how his leg looks. Chuy is currently on IV abx for cellulitis of his RLE, as he failed outpatient oral antibiotic therapy. CM reviewed options for nursing home IV abx, although his IV abx course remains unclear at this time, awaiting pending blood cultures. hCuy expressed concern about having to be in the hospital for longer than a few days. CM provided reassurance, as the plan is not clear at this point, but it will develop over the next 24-48H, depending on how well he re sponds to IV abx. CM will continue to follow. ADVANCE DIRECTIVES:: Not on file. CM will offer forms. Has patient been provided with info about the portal/API?: Yes Did the patient sign up for the portal?: No CODE STATUS:: Full Code INSURANCE COVERAGE / FINANCIAL ISSUES:: [employer] CURRENT HOME/COMMUNITY SERVICES/EQUIPMENT:: None PRIMARY CARE PHYSICIAN:: Kailey Martinez POTENTIAL DISCHARGE NEEDS:: Evaluations for further needs, follow up appointments. PATIENT/FAMILY EDUCATION NEEDS:: Review discharge instructions and limitations, discussion of self care needs including ask me three. ANTICIPATED BARRIERS TO DISCHARGE:: Failed o/p abx, may require nursing home IV abx TRANSPORTATION:: Via private vehicle by his . PLAN:: Anticipate Sonny will return home once medically cleared. His will drive him home via private vehicle when ready. He will follow up with his PCP and discharge plan of care. CM will continue to follow. PFSH All Active Problems (Updated 06/25/23 @ 12:53 by Candy Murrieta NP) Discharge planning issues (Acute) Hypokalemia (Acute) Sepsis due to cellulitis (Acute) Cellulitis of right lower leg (Acute) PAKO (acute kidney injury) (Acute) Benign essential HTN (Acute) GERD (gastroesophageal reflux disease) (Chronic) Obesity (Chronic) Osteoarthritis of neck (Acute) Hemorrhoids (Acute) Pain in right forearm (Acute) Pain in right shoulder (Acute) Patellar tendinitis, right knee (Acute) Avulsion of left patellar tendon (Acute 07/26/22) Medical History Dental caries Fracture of distal end of left radius and ulna Posttraumatic stress disorder Surgical History History of hernia surgery umbilical and inguinal bilateral Hx of cervical spine surgery 4 fused vertebra Social History Smoking/Tobacco Use Status: Never Smoking risk assessment performed?: Yes Alcohol Intake: current Alcohol Intake frequency: a few times a week Alcohol type: hard liquor Drug use: Occasionally Substance use type: marijuana Details: LASHAWN Ta 3nights ago Housing: house Current gender identity: male Do you feel safe at home: Yes Do you feel safe in your relationship?: Yes
--- NOTE | 2023-06-25 12:44 | W.PM.PROGNOT ---
Date of Service Date of service: 06/25/23 Time of Service: 12:44 Assessment and Plan Assessment and plan (1) Sepsis due to cellulitis: Status: Acute Assessment and plan: -sepsis resolving, hemodynamically stable with normalizing white count, max temp overnight 38.3, no further temp today -patient was initially on bactrim and keflex as outpatient -RLE venous duplex negative for DVT continue vanco/cefepime day 2 continue elevation. (2) PAKO (acute kidney injury): Status: Acute Assessment and plan: -baseline Cr 1, found to be 1.6 on admission, down to 1.4 today -likely due to combination of infection, IV contrast given at outside hospital, and taking home chlothalidone -s/p 1L IVF in ED and fluids overnight, taking good po so will stop IVF -continue to monitor kidney function closely avoid nephrotoxic drugs, renal dose as needed. continue to hold chlorthalidone (3) Benign essential HTN: Status: Acute Assessment and plan: -continue home almodipine -hold home chlorthalidone until PAKO improves (4) Hypokalemia: Status: Acute Assessment and plan: replete and follow, Mag 1.9 (5) Discharge planning issues: Status: Acute Assessment and plan: DVT prophylaxis: enoxaparin anticipate discharge to home with no services. discussed with Dr Arrington Subjective Subjective Patient reports: no new complaints, tolerating liquids well, tolerating a regular diet and afebrile Interval history since last seen: no significant improvement in symptoms but stable. Exam Const General: cooperative and no acute distress Nutritional Appearance: obese Orientation: alert, awake and oriented x3 HENMT Head: normal to inspection, normocephalic and atraumatic Mouth: oral mucosae normal Chest Chest: normal inspection of the chest Resp Effort & Inspection: normal respiratory effort Auscultation: clear to auscultation bilaterally Cardio Rate: regular rate Rhythm: regular rhythm GI Inspection: normal to inspection Skin Rashes: rashes noted (RLE, within markings, bright red and warm, demarcated) Neuro General: patient alert, patient awake, patient oriented x3 and no focal motor deficits Extrem General: full ROM and edema (greater than left, US negative for DVT) Laterality: right Objective Last Vital Signs Temp 36.7 C 06/25/23 11:49 Pulse 62 06/25/23 11:49 Resp 18 06/25/23 11:49 BP 123/83 06/25/23 11:49 Pulse Ox 94 06/25/23 11:49 Laboratory Results - last 24 hr 06/25/23 06/25/23 06:25 06:25 WBC 15.98 H RBC 4.45 Hgb 12.7 L Hct 37.9 L MCV 85 MCH 28.5 MCHC 33.5 RDW 13.2 Plt Count 248 MPV 10.6 Sodium 132 L Potassium 2.8 L* Chloride 95 L Carbon Dioxide 29.7 Anion Gap 7.3 BUN 16 Creatinine 1.4 H Est GFR (CKD-EPI 2020) 59.73 Glucose 99 Calcium 8.5 Magnesium 1.9 Time Spent with Patient Time Spent with Patient: 35-49 minutes Time was spent: preparing to see the patient(eg.review tests), obtaining and/or reviewing separately otained hiistory, ordering medications,tests, procedures and indepentently interpreting results
[2023-06-25] MEDS: Enoxaparin 40 MG/0.4 ML SYR SC (14:47)
[2023-06-25] MEDS: POTASSIUM CHLORIDE 20 MEQ/100 ML BAG 50 MEQ IVPB (22:00)
[2023-06-25] MEDS: Normal Saline Flush 10 ML SYR IVP (22:10)
[2023-06-25] MEDS: Normal Saline 500 ML 30 ML IV (22:10)
[2023-06-26] VITALS (7 sets, daily range): BP systolic 124–171; BP diastolic 76–92; PULSE 72–77; RESP 16–20; TEMP 37–37.4; O2SAT 93–99
--- NOTE | 2023-06-26 | DI.RAD_ITS ---
Exam(s) XR PORTABLE CHEST AP EXAM: XR PORTABLE CHEST AP CLINICAL HISTORY: shortness of breath TECHNIQUE: 2D digital imaging was performed. COMPARISON: No exams were available for comparison FINDINGS: LUNGS: Clear. No pleural abnormality seen. HEART: Normal size. AORTA: Normal diameter. BONES: Metallic densities overlying upper thoracic spine. Soft tissues: Unremarkable. IMPRESSION: No acute findings. DATA REPOSITORY: RADIATION DOSE DELIVERED:
[2023-06-26] MEDS: MORPHine 2 MG/ML SYR 1 MG IVP ×3 (01:32→12:29)
[2023-06-26] MEDS: Normal Saline Flush 10 ML SYR IVP ×2 (01:33→06:15)
[2023-06-26] MEDS: VANCOMYCIN/WATER (PEG) 1.25 GM/250 ML BAG IV ×2 (04:17→16:40)
[2023-06-26] MEDS: CEFEPIME 2 GM in Normal Saline 100 ML IVPB ×3 (06:15→21:49)
[2023-06-26 07:10] LABS: Absolute Basophil Count 0.08 10^3/uL (0.0-0.2); Absolute Eosinophil Count 0.37 10^3/uL (0.0-0.7); Absolute Lymphocyte Count 1.36 10^3/uL (1.2-3.4); Absolute Neutrophil Count 8.11 10^3/uL (1.2-6.7); Basophils % 0.7; Eosinophils % 3.3; HCT 39.4 % (40.0-50.0); Immature Grans % 2.7; Lymphocytes % 12.1; MCH 28.3 pg (27.0-33.0); MCV 86 fL (80-95); MPV 9.8 fL (8.0-11.0); Monocytes % 8.8; Neutrophils % 72.4; Platelet Count 293 10^3/uL (130-400); RDW 13.4 % (11.8-14.1); RDW-SD 41.9 fL
[2023-06-26 07:11] LABS: Absolute Monocyte Count 0.99 10^3/uL (0.1-0.8)
[2023-06-26 07:27] LABS: Anion Gap 5.7 mmol/L (3-11); BUN 14 mg/dL (7-18); CO2 30.3 mmol/L (21.0-32.0); CREATININE 1.4 mg/dL (0.70-1.30); Calcium 9.1 mg/dL (8.5-10.1); Chloride 99 mmol/L (98-107); Estimated GFR 59.73 (mL/min/1.73m2); Glucose 115 mg/dL (74-106); Magnesium 2.1 mg/dL (1.8-2.4); Potassium 3.3 mmol/L (3.5-5.1); Sodium 135 mmol/L (136-145)
[2023-06-26 07:28] LABS: COVID-19 PCR Negative (Negative); Influenza A PCR Negative (Negative); Influenza B PCR Negative (Negative); RSV PCR Negative (Negative)
[2023-06-26 07:29] LABS: Source Nasopharynx
[2023-06-26] MEDS: amLODIPine 2.5 MG TAB PO (07:39)
[2023-06-26] MEDS: Potassium Chloride 20 MEQ TABCR 40 MEQ PO (07:39)
[2023-06-26 08:12] LABS: Lab Add On Test DONE
--- NOTE | 2023-06-26 08:18 | DI.VRAD_ITS ---
PROCEDURE INFORMATION: Exam: XR Chest Exam date and time: 06/26/2023 7:46 AM Age: 53 years old Clinical indication: Shortness of breath TECHNIQUE: Imaging protocol: Radiologic exam of the chest. Views: 1 view. COMPARISON: No relevant prior studies available. FINDINGS: Lungs: Mild pulmonary vascular congestion. Pleural spaces: Right costophrenic angle not imaged. Heart/Mediastinum: Enlarged cardiac silhouette. Bones/joints: Grossly unremarkable. IMPRESSION: 1. No focal consolidation seen. 2. Findings as above. Dictated and Authenticated by: Leydi Arreola MD. Ordering:BRENDA Barnett MD
[2023-06-26 08:37] LABS: NT-proBNP 286 pg/mL (<300)
--- NOTE | 2023-06-26 10:32 | PDOC.CMPRO ---
Date of service: 06/26/23 Time of Service: 10:32 Care Management Progress Note Progress Note Text Progress Note Text: S/O: Chuy was sitting up in his chair when CM met with him today. He stated that he feels well today, and feels that his cellulitis is improving on the IV medication. Per report, his IV abx course remains unclear at this time. Nursing reported that he was feeling short of breath; he was tested for flu and covid which were both negative. CM will continue to follow. A: Sonny is a 53 year old male admitted to [facility] on 06/24/23 for failed o/p therapy of RLE cellulitis. P: Anticipate Sonny will return home once medically cleared. His will drive him home via private vehicle when ready. He will follow up with his PCP and discharge plan of care. CM will continue to follow.
[2023-06-26] MEDS: Normal Saline 500 ML 30 ML IV (10:54)
[2023-06-26] MEDS: POTASSIUM CHLORIDE 20 MEQ/100 ML BAG 50 MEQ IVPB ×2 (10:56→13:14)
[2023-06-26] MEDS: Enoxaparin 40 MG/0.4 ML SYR SC (14:37)
[2023-06-26 17:56] LABS: Vancomycin, Trough 7.2 ug/mL (10.0-20.0)
--- NOTE | 2023-06-26 19:23 | W.PM.PROGNOT ---
Date of Service Date of service: 06/26/23 Time of Service: 10:00 Assessment and Plan Assessment and plan (1) Sepsis due to cellulitis: Status: Acute Assessment and plan: Hemodynamically stable - Tmax 37.4 Continue vanco/cefepime day 3 continue elevation. (2) PAKO (acute kidney injury): Status: Acute Assessment and plan: Cr 1.4 today continue to monitor kidney function closely avoid nephrotoxic drugs, renal dose as needed. continue to hold chlorthalidone, lungs are clear, no edema on left leg (3) Benign essential HTN: Status: Acute Assessment and plan: -continue home almodipine -hold home chlorthalidone until PAKO improves Cr 1.4 (4) Hypokalemia: Status: Acute Assessment and plan: Potassium 3.3 - replete and monitor 2 x 20 meq IVPB ordered and given Mag 2.1 (5) Discharge planning issues: Status: Acute Assessment and plan: DVT prophylaxis: enoxaparin anticipate discharge to home with no services. discussed with Dr Arrington Subjective Subjective Patient reports: no new complaints, still having pain, pain is less, tolerating a regular diet, voiding w/o difficulty, bowel movement and afebrile; denies diarrhea, nausea or vomiting Interval history since last seen: Patient continues to complain of pain, he does not want to take tylenol as he feels it does nothing for his pain, but also is afraid to take morphine - discussed middle of the road pain med, he is allergic to codeine, he is willing to try Tramadol Exam Const General: cooperative and no acute distress Nutritional Appearance: obese Orientation: alert, awake and oriented x3 [facility] Head: normal to inspection, normocephalic and atraumatic Mouth: oral mucosae normal Chest Chest: normal inspection of the chest Resp Effort & Inspection: normal respiratory effort Auscultation: clear to auscultation bilaterally Cardio Rate: regular rate Rhythm: regular rhythm GI Inspection: normal to inspection Skin Rashes: rashes noted (RLE, within markings, bright red and warm, demarcated) Neuro General: patient alert, patient awake, patient oriented x3 and no focal motor deficits Extrem General: full ROM and edema (greater than left, US negative for DVT) Laterality: right Objective Last Vital Signs Temp 37.4 C 06/26/23 15:16 Pulse 74 06/26/23 15:16 Resp 19 06/26/23 15:16 BP 124/78 06/26/23 15:16 Pulse Ox 99 06/26/23 15:16 Laboratory Results - last 24 hr 06/26/23 06/26/23 06/26/23 05:45 06:40 06:40 WBC 11.20 H RBC 4.60 Hgb 13.0 L Hct 39.4 L MCV 86 MCH 28.3 MCHC 33.0 RDW 13.4 Plt Count 293 MPV 9.8 Immature Gran % 2.7 Neutrophils % 72.4 Lymphocytes % 12.1 Monocytes % 8.8 Eosinophils % 3.3 Basophils % 0.7 Nucleated RBC % 0.0 Absolute Neutrophils 8.11 H Absolute Lymphocytes 1.36 Absolute Monocytes 0.99 H Absolute Eosinophils 0.37 Absolute Basophils 0.08 Sodium 135 L Potassium 3.3 L Chloride 99 Carbon Dioxide 30.3 Anion Gap 5.7 BUN 14 Creatinine 1.4 H Est GFR (CKD-EPI 2020) 59.73 Glucose 115 H Calcium 9.1 Magnesium 2.1 NT-Pro-B Natriuret Pep Vancomycin Draw Type Vancomycin Trough COVID-19 Source Nasopharynx SARS-CoV-2 (PCR) Negative Influenza Type A (PCR) Negative Influenza Type B (PCR) Negative RSV (PCR) Negative Add-On Test Request 06/26/23 06/26/23 06/26/23 06:40 06:40 15:03 WBC RBC Hgb Hct MCV MCH MCHC RDW Plt Count MPV Immature Gran % Neutrophils % Lymphocytes % Monocytes % Eosinophils % Basophils % Nucleated RBC % Absolute Neutrophils Absolute Lymphocytes Absolute Monocytes Absolute Eosinophils Absolute Basophils Sodium Potassium Chloride Carbon Dioxide Anion Gap BUN Creatinine Est GFR (CKD-EPI 2020) Glucose Calcium Magnesium NT-Pro-B Natriuret Pep 286 Vancomycin Draw Type Cancelled Vancomycin Trough Cancelled COVID-19 Source SARS-CoV-2 (PCR) Influenza Type A (PCR) Influenza Type B (PCR) RSV (PCR) Add-On Test Request DONE 06/26/23 15:03 WBC RBC Hgb Hct MCV MCH MCHC RDW Plt Count MPV Immature Gran % Neutrophils % Lymphocytes % Monocytes % Eosinophils % Basophils % Nucleated RBC % Absolute Neutrophils Absolute Lymphocytes Absolute Monocytes Absolute Eosinophils Absolute Basophils Sodium Potassium Chloride Carbon Dioxide Anion Gap BUN Creatinine Est GFR (CKD-EPI 2020) Glucose Calcium Magnesium NT-Pro-B Natriuret Pep Vancomycin Draw Type Vancomycin Trough 7.2 L COVID-19 Source SARS-CoV-2 (PCR) Influenza Type A (PCR) Influenza Type B (PCR) RSV (PCR) Add-On Test Request Time Spent with Patient Time Spent with Patient: 35-49 minutes Time was spent: preparing to see the patient(eg.review tests), ordering medications,tests, procedures, referring, communicating with other health healthcare network pricing consultant, indepentently interpreting results, counseling the patient and care coordination
[2023-06-26] MEDS: VANCOMYCIN 1,250 MG in Normal Saline 250 ML 166.667 MG IVPB (23:23)
[2023-06-27] MEDS: Normal Saline Flush 10 ML SYR IVP (02:39)
[2023-06-27] MEDS: MORPHine 2 MG/ML SYR 1 MG IVP ×2 (02:40→06:40)
[2023-06-27] MEDS: Normal Saline 500 ML 30 ML IV (05:26)
[2023-06-27] MEDS: CEFEPIME 2 GM in Normal Saline 100 ML IVPB ×3 (05:27→21:06)
[2023-06-27 07:34] LABS: Abs Immature Grans 0.34 10^3/uL (0.0-0.06); Absolute Basophil Count 0.09 10^3/uL (0.0-0.2); Absolute Eosinophil Count 0.52 10^3/uL (0.0-0.7); Absolute Neutrophil Count 6.99 10^3/uL (1.2-6.7); Basophils % 0.8; Eosinophils % 4.8; HCT 39.3 % (40.0-50.0); HGB 13.1 g/dL (13.5-17.5); Immature Grans % 3.2; Lymphocytes % 16.8; MCH 28.5 pg (27.0-33.0); MCHC 33.3 % (32.0-36.0); MCV 85 fL (80-95); MPV 10.1 fL (8.0-11.0); Monocytes % 9.3; Neutrophils % 65.1; Platelet Count 374 10^3/uL (130-400); RDW 13.3 % (11.8-14.1); RDW-SD 41.7 fL; WBC 10.74 10^3/uL (4.4-10.8)
[2023-06-27 07:49] LABS: Anion Gap 5.5 mmol/L (3-11); BUN 12 mg/dL (7-18); CO2 30.5 mmol/L (21.0-32.0); CREATININE 1.2 mg/dL (0.70-1.30); Chloride 99 mmol/L (98-107); Estimated GFR 71.86 (mL/min/1.73m2); Glucose 116 mg/dL (74-106); Potassium 3.2 mmol/L (3.5-5.1); Sodium 135 mmol/L (136-145)
[2023-06-27 07:54] LABS: C-Reactive Protein 13.38 mg/dL (0.0-0.3)
[2023-06-27 08:00] VITALS: BP 123/77; PULSE 77; RESP 14; TEMP 36.6; O2SAT 94
[2023-06-27] MEDS: Pantoprazole 40 MG TABCR PO (09:19)
[2023-06-27] MEDS: Docusate Sodium 100 MG CAP PO (09:19)
[2023-06-27] MEDS: amLODIPine 2.5 MG TAB PO (09:19)
[2023-06-27] MEDS: traMADol 50 MG TAB 100 MG PO ×2 (09:20→21:55)
[2023-06-27] MEDS: VANCOMYCIN/WATER (PEG) 1.25 GM/250 ML BAG IV (09:23)
--- NOTE | 2023-06-27 09:38 | PDOC.CMPRO ---
Date of service: 06/27/23 Time of Service: 09:38 Care Management Progress Note Progress Note Text Progress Note Text: S/O: Sonny was sitting up in his chair when CM met with him. He stated that he feels that his cellulitis has gotten better with the IV antibiotic therapy. He asked if he should be walking around on his leg, or if he should keep it elevated. Per report, he should continue elevation. His blood cultures are negative to date; IV antibiotic course remains unclear at this time. CM will continue to follow. A: Sonny is a 53 year old male admitted to [facility] on 06/24/23 for failed o/p therapy of RLE cellulitis. P: Anticipate Sonny will return home once medically cleared. His will drive him home via private vehicle when ready. He will follow up with his PCP and discharge plan of care. CM will continue to follow.
--- NOTE | 2023-06-27 11:06 | W.PM.PROGNOT ---
Date of Service Date of service: 06/27/23 Time of Service: 11:06 Assessment and Plan Assessment and plan (1) Sepsis due to cellulitis: Status: Acute Assessment and plan: Hemodynamically stable - no further fevers blood cultures negative to date Continue vanco/cefepime day 4, no significant improvement, will ask surgery to perform biopsy and start steroids. continue elevation. (2) PAKO (acute kidney injury): Status: Resolved Assessment and plan: Cr 1.2 today continue to monitor kidney function closely avoid nephrotoxic drugs, renal dose as needed. continue to hold chlorthalidone, lungs are clear (3) Benign essential HTN: Status: Acute Assessment and plan: -continue home amlodipine -hold home chlorthalidone (4) Hypokalemia: Status: Acute Assessment and plan: Potassium 3.2 - replete and monitor 2 x 20 meq IVPB ordered and given Mag 2.1 (5) Discharge planning issues: Status: Acute Assessment and plan: DVT prophylaxis: enoxaparin anticipate discharge to home with no services. discussed with Dr Arrington Subjective Subjective Patient reports: no new complaints, feels better, tolerating liquids well, tolerating a regular diet, no bowel movement (does not feel constipated, passing flatus) and afebrile Exam Const General: cooperative and no acute distress Nutritional Appearance: obese Orientation: alert, awake and oriented x3 HENMT Head: normal to inspection, normocephalic and atraumatic Mouth: oral mucosae normal Chest Chest: normal inspection of the chest Resp Effort & Inspection: normal respiratory effort Auscultation: clear to auscultation bilaterally Cardio Rate: regular rate Rhythm: regular rhythm GI Inspection: normal to inspection Skin Rashes: rashes noted (RLE, within markings, bright red and warm, demarcated, blisters) Neuro General: patient alert, patient awake, patient oriented x3 and no focal motor deficits Extrem General: full ROM and edema (greater than left, US negative for DVT) Laterality: right Objective Last Vital Signs Temp 36.6 C 06/27/23 08:00 Pulse 77 06/27/23 08:00 Resp 14 06/27/23 08:00 BP 123/77 06/27/23 08:00 Pulse Ox 94 06/27/23 08:00 Laboratory Results - last 24 hr 06/26/23 06/26/23 06/27/23 15:03 15:03 06:30 WBC RBC Hgb Hct MCV MCH MCHC RDW Plt Count MPV Immature Gran % Neutrophils % Lymphocytes % Monocytes % Eosinophils % Basophils % Nucleated RBC % Absolute Neutrophils Absolute Lymphocytes Absolute Monocytes Absolute Eosinophils Absolute Basophils Sodium 135 L Potassium 3.2 L Chloride 99 Carbon Dioxide 30.5 Anion Gap 5.5 BUN 12 Creatinine 1.2 Est GFR (CKD-EPI 2020) 71.86 Glucose 116 H Calcium 9.0 Magnesium 2.0 C-Reactive Protein Vancomycin Draw Type Cancelled Vancomycin Trough Cancelled 7.2 L 06/27/23 06/27/23 06:30 06:45 WBC 10.74 RBC 4.60 Hgb 13.1 L Hct 39.3 L MCV 85 MCH 28.5 MCHC 33.3 RDW 13.3 Plt Count 374 MPV 10.1 Immature Gran % 3.2 Neutrophils % 65.1 Lymphocytes % 16.8 Monocytes % 9.3 Eosinophils % 4.8 Basophils % 0.8 Nucleated RBC % 0.0 Absolute Neutrophils 6.99 H Absolute Lymphocytes 1.80 Absolute Monocytes 1.00 H Absolute Eosinophils 0.52 Absolute Basophils 0.09 Sodium Potassium Chloride Carbon Dioxide Anion Gap BUN Creatinine Est GFR (CKD-EPI 2020) Glucose Calcium Magnesium C-Reactive Protein 13.38 H Vancomycin Draw Type Vancomycin Trough Time Spent with Patient Time Spent with Patient: 25-34 minutes Time was spent: preparing to see the patient(eg.review tests), obtaining and/or reviewing separately otained hiistory, ordering medications,tests, procedures and indepentently interpreting results
[2023-06-27 11:20] VITALS: BP 123/81; PULSE 72; RESP 20; TEMP 36.8; O2SAT 96
[2023-06-27] MEDS: Potassium Chloride 20 MEQ TABCR 40 MEQ PO (11:31)
[2023-06-27] MEDS: Enoxaparin 40 MG/0.4 ML SYR SC (13:15)
--- NOTE | 2023-06-27 14:17 | PHACLINREV_ITS ---
Pharmacy Admission Review Admission Clinical Review Admission Pharmacy Review: (Updated 06/25/23 @ 12:53 by Candy Murrieta NP) Discharge planning issues (Acute) Hypokalemia (Acute) Sepsis due to cellulitis (Acute) Cellulitis of right lower leg (Acute) PAKO (acute kidney injury) (Acute) Benign essential HTN (Acute) cat dander Allergy (Unverified 06/24/23 09:46) acetaminophen [From Percocet] Adverse Reaction (Verified 06/24/23 09:46) skin oxycodone [From Percocet] Adverse Reaction (Verified 06/24/23 09:46) skin Resuscitation Status Full Code Height 5 ft 10.5 in Weight 165.108 kg Comments Comments/Follow Ups: Watch BP, SCr, K+, labs, for culture results and for med ch anges. Pharmacy Admission Review Renal Dosing Renal Dosing: BUN 12 mg/dL (7-18) 06/27/23 06:30 Creatinine 1.2 mg/dL (0.70-1.30) 06/27/23 06:30 Medications needing adjustments: Reviewed (Crcl ~110 mL/min current meds okay) Anticoagulation Anticoagulation: Hgb 13.1 g/dL (13.5-17.5) L 06/27/23 06:30 Hct 39.3 % (40.0-50.0) L 06/27/23 06:30 Plt Count 374 10^3/uL (130-400) 06/27/23 06:30 Creatinine 1.2 mg/dL (0.70-1.30) 06/27/23 06:30 DVT Prophylaxis: N/A Therapeutic Anticoagulation: Reviewed Medications: Apixaban Opiate Usage Evaluate Pain Scale/Pains Meds: Reviewed Scheduled Bowel Reg ordered if on Opiates?: No (has PRN meds ordered) Relevant Labs Relevant Labs: Sodium 135 mmol/L (136-145) L 06/27/23 06:30 Potassium 3.2 mmol/L (3.5-5.1) L 06/27/23 06:30 Chloride 99 mmol/L (98-107) 06/27/23 06:30 Magnesium 2.0 mg/dL (1.8-2.4) 06/27/23 06:30 C-Reactive Protein 13.38 mg/dL (0.0-0.3) H 06/27/23 06:45 Electrolytes, C-Reactive P, ESR: Reviewed (PO K+ replacement ordered) DM Control DM Control: Reviewed (No DM noted in pt's medical history, A1c from 09/2022 was 5.5.) Cardiac Review Cardiac Review: NT-Pro-B Natriuret Pep 286 pg/mL (<300) 06/26/23 06:40 BP, HR, EF%: Reviewed (HR has been within normal limits and BP has been normal to high so far this admission.) QTc Review QTc: N/A IV to PO Switch IV Medications: Reviewed Home Meds Home Med List reviewed: Reviewed (cephalexin (has other abx ordered), chlorthalidone (being held until PAKO improves per H&P), ibuprofen (PRN)) Current Meds Current Medication Order Review: Reviewed Pharmacy Antibiotic Review Relevant Labs: Relevant Labs 06/27/23 06:45 C-Reactive Protein 13.38 H Pharmacy Antibiotic Activity: 48 hour review, Abx regimen adjustment and C/S review Comments: BC no growth @48H. Cefepime and vanco continue for sepsis due to cellulitis per progress note (day 4). Vanco trough drawn yesterday and was low, dose adjusted per protocol. Comments Comments/Follow Ups: Watch BP, SCr, K+, labs, for culture results and for med changes.
--- NOTE | 2023-06-27 16:15 | SKI_PTH ---
PATIENT: Sonny Groves LOC: U#:[id number] AGE/SX: 53/M ROOM: 208 RE06/24/[address]: Carlos Olmstead MD : 1970 BED: A DIS: 06/28/2023 SPEC #: [id number] RECD: 06/27/23 17:16 STATUS: RICKIE REQ #: [id number] FAB: 06/27/23 16:[address]: Carlos Olmstead DEPT: Surgical Specimen RECD BY: Francesca Hairston ENTERED: 06/27/23 17:17 SP TYPE: SKI IMTIAZ DR: MD Michelle Marie Kelsey Tissues: 1 - SKIN BIOPSY(SHAVE/PUNCH) Procedures: SKIN LEVEL 4 Comments: [id number]
[2023-06-27] MEDS: methylPREDNISolone SUCC 125 MG VIAL 60 MG IVP (16:17)
[2023-06-27] MEDS: VANCOMYCIN/WATER (PEG) 1 GM/200 ML BAG IV ×2 (16:18→21:50)
[2023-06-27] MEDS: Potassium Chloride 20 MEQ TABCR PO (16:18)
--- NOTE | 2023-06-27 16:36 | W.SURGCON ---
Date of service: 06/27/23 Time of Service: 16:37 Assessment and Plan Assessment and plan (1) Cellulitis of right lower leg: Status: Acute Assessment and plan: 53 year old male with edema, redness and blistering of his RLE below the knee. There is no erash anywhere else. Recommend punch biopsy. Recommend prednisone Continue antibiotics until we have a diagnoses Punch biopsy was explained to the patient as well as the possible risks and complications. Complicastions include but are not limited to bleeding, infection. The patient understands and wishes to proceed. History of Present Illness Narrative: From the H&P: 53-year-old male with a past medical history of hypertension and GERD presents to the emergency department with complaints of worsening right lower extremity swelling. Patient states that he was seen at [facility] 2 days prior had a CT and a duplex study of the right lower extremity that did not show any abscesses or DVT.? He was discharged with Keflex and Bactrim however, he states that the redness and swelling of his right lower extremity have become significantly worse.? He denies any lightheadedness, dizziness, shortness of breath, fever. In the emergency department the patient had normal vital signs, CBC showed a white count of 17.3 which is reportedly lower than when he was seen in [facility] where his white blood cell count was in the 20s.? Additionally, BMP showed potassium of 3.1, and a creatinine of 1.6 (baseline of 1).? A noncontrast CT of the right lower extremity was performed in the emergency department and showed inflammatory changes in the subcu fat of the lower extremity representing cellulitis or edema but no loculated fluid.? Given that it is the weekend lower extremity duplex study is not available.? Emergency room physician started patient on vancomycin and cefepime and paged hospitalist for admission for patient with failed outpatient therapy of right lower extremity cellulitis and acute kidney injury. I was asked to see the patient because his cellulitis has not improved. The patient states he has no pain. He just feels like his right LE below the knee is tight. He has had no fevers since admission. He did have a WBC count on admission which has now resolved. He has been on Vancomysis since his admission. He also tells me that the swelling and cellulitis started after he had what he thought was a bad case of the flu. Consults Consult date: 06/27/23 Requesting physician: Candy Murrieta Review of Systems Constitutional Constitutional: Denies excessive sweating, Denies fever(s), Denies headache(s), Denies malaise, Denies poor appetite, Denies weakness and Denies weight loss Eyes Eyes: Denies change in vision ENT Ears, Nose, Mouth, and Throat: Denies change in voice, Denies dysphagia and Denies headache(s) Cardiovascular Cardiovascular: Denies chest pain, Denies irregular heart rhythm, Denies palpitations, Denies dyspnea and Denies dyspnea on exertion Respiratory Respiratory: Denies cough, Denies dyspnea and Denies dyspnea on exertion Gastrointestinal Gastrointestinal: Reports system reviewed and no additional complaints, except as documented and Denies dysphagia Genitourinary Genitourinary: Denies difficulty urinating and Denies dysuria Musculoskeletal Musculoskeletal: Denies arthralgias Integumentary/Breasts Skin/Breast: Reports as per HPI Neurologic Neurologic: Reports system reviewed and no additional complaints, except as documented, Denies headache(s) and Denies weakness Psychiatric Psychiatric: Reports system reviewed and no additional complaints, except as documented Endocrine Endocrine: Denies excessive sweating and Denies palpitations PFSH All Active Problems Discharge planning issues (Acute) Hypokalemia (Acute) Sepsis due to cellulitis (Acute) Cellulitis of right lower leg (Acute) Benign essential HTN (Acute) GERD (gastroesophageal reflux disease) (Chronic) Obesity (Chronic) Osteoarthritis of neck (Acute) Hemorrhoids (Acute) Pain in right forearm (Acute) Pain in right shoulder (Acute) Patellar tendinitis, right knee (Acute) Avulsion of left patellar tendon (Acute 07/26/22) Medical History Dental caries Fracture of distal end of left radius and ulna Posttraumatic stress disorder Surgical History History of hernia surgery umbilical and inguinal bilateral Hx of cervical spine surgery 4 fused vertebra Social History Smoking/Tobacco Use Status: Never Smoking risk assessment performed?: Yes Alcohol Intake: current Alcohol Intake frequency: a few times a week Alcohol type: hard liquor Drug use: Occasionally Substance use type: marijuana Details: CBD Gummy 3nights ago Housing: house Current gender identity: male Do you feel safe at home: Yes Do you feel safe in your relationship?: Yes Exam Const General: cooperative, comfortable and no acute distress Nutritional Appearance: overweight Orientation: alert and oriented x3 HENMT Head: normocephalic and atraumatic Resp Effort & Inspection: normal respiratory effort Extrem Other: RLE below the knee: There is edema, redness and blistering of the skin. There are also areas of bruising/ecchymosis. NOt tender to touch. Results Last Vital Signs Temp 98.2 F 06/27/23 11:20 Pulse 72 06/27/23 11:20 Resp 20 06/27/23 11:20 BP 123/81 06/27/23 11:20 Pulse Ox 96 06/27/23 11:20 Labs 06/27/23 06:30 06/27/23 06:30 Labs: Laboratory Results - last 24 hr 06/26/23 06/26/23 06/27/23 15:03 15:03 06:30 WBC RBC Hgb Hct MCV MCH MCHC RDW Plt Count MPV Immature Gran % Neutrophils % Lymphocytes % Monocytes % Eosinophils % Basophils % Nucleated RBC % Absolute Neutrophils Absolute Lymphocytes Absolute Monocytes Absolute Eosinophils Absolute Basophils Sodium 135 L Potassium 3.2 L Chloride 99 Carbon Dioxide 30.5 Anion Gap 5.5 BUN 12 Creatinine 1.2 Est GFR (CKD-EPI 2020) 71.86 Glucose 116 H Calcium 9.0 Magnesium 2.0 C-Reactive Protein Vancomycin Draw Type Cancelled Vancomycin Trough Cancelled 7.2 L 06/27/23 06/27/23 06:30 06:45 WBC 10.74 RBC 4.60 Hgb 13.1 L Hct 39.3 L MCV 85 MCH 28.5 MCHC 33.3 RDW 13.3 Plt Count 374 MPV 10.1 Immature Gran % 3.2 Neutrophils % 65.1 Lymphocytes % 16.8 Monocytes % 9.3 Eosinophils % 4.8 Basophils % 0.8 Nucleated RBC % 0.0 Absolute Neutrophils 6.99 H Absolute Lymphocytes 1.80 Absolute Monocytes 1.00 H Absolute Eosinophils 0.52 Absolute Basophils 0.09 Sodium Potassium Chloride Carbon Dioxide Anion Gap BUN Creatinine Est GFR (CKD-EPI 2020) Glucose Calcium Magnesium C-Reactive Protein 13.38 H Vancomycin Draw Type Vancomycin Trough Procedures Other Procedure Description/Findings: Pre-op Dx: celulitis vs skin rash Post-op Dx: same Procedure: 3 mm punch biopsies x2 Surgeon: Olivier Crutis MD Anesthesia: 1% Lidocaine with epi Blood loss: 25 cc Specimen: tissue Complications: no immediate complications Procedure: After informed consent was obtained the patient was placed in a supine position. The skin was cleaned with alcohol and infiltrated with the above local anesthetic. The skin in 2 different areas was prepped with chlorhexedine and punch biopsy of both areas was done. The specimen was placed on telfa and into formalin. Pressure was held with 4x4 and once the bleeding had slowed down Mepilex border dressings were applied. The patient tolerated the procedure well and there were no immediate complications.
[2023-06-27 17:39] LABS: Lab Add On Test DONE
[2023-06-27 18:27] LABS: Procalcitonin 0.5 ng/mL
[2023-06-27 19:46] VITALS: BP 128/85; PULSE 67; RESP 18; TEMP 36.3; O2SAT 96
[2023-06-27 23:36] VITALS: BP 135/83; PULSE 77; RESP 16; TEMP 36.5; O2SAT 95
[2023-06-28 02:52] VITALS: BP 168/99; PULSE 83; RESP 16; TEMP 36.5; O2SAT 98
[2023-06-28] MEDS: VANCOMYCIN/WATER (PEG) 1 GM/200 ML BAG IV (03:05)
[2023-06-28] MEDS: CEFEPIME 2 GM in Normal Saline 100 ML IVPB (05:17)
[2023-06-28 07:04] LABS: Basophils % 0.5; Eosinophils % 0.5; HCT 40.7 % (40.0-50.0); HGB 13.7 g/dL (13.5-17.5); Immature Grans % 2.9; Lymphocytes % 10.7; MCH 28.7 pg (27.0-33.0); MCHC 33.7 % (32.0-36.0); MCV 85 fL (80-95); MPV 9.8 fL (8.0-11.0); Monocytes % 5.2; Neutrophils % 80.2; Platelet Count 456 10^3/uL (130-400); RBC 4.78 10^6/uL (4.36-5.78); RDW-SD 40.2 fL; WBC 17.36 10^3/uL (4.4-10.8)
[2023-06-28 07:07] LABS: Absolute Basophil Count 0.09 10^3/uL (0.0-0.2); Absolute Eosinophil Count 0.09 10^3/uL (0.0-0.7); Absolute Lymphocyte Count 1.86 10^3/uL (1.2-3.4); Absolute Neutrophil Count 13.92 10^3/uL (1.2-6.7)
[2023-06-28 07:25] LABS: Anion Gap 8.2 mmol/L (3-11); BUN 13 mg/dL (7-18); C-Reactive Protein 8.78 mg/dL (0.0-0.3); CO2 26.8 mmol/L (21.0-32.0); CREATININE 1.1 mg/dL (0.70-1.30); Calcium 9.1 mg/dL (8.5-10.1); Chloride 97 mmol/L (98-107); Estimated GFR 79.77 (mL/min/1.73m2); Glucose 114 mg/dL (74-106); Sodium 132 mmol/L (136-145)
[2023-06-28] MEDS: amLODIPine 2.5 MG TAB PO (07:55)
[2023-06-28] MEDS: Pantoprazole 40 MG TABCR PO (07:55)
[2023-06-28] MEDS: Potassium Chloride 20 MEQ TABCR PO (07:55)
[2023-06-28] MEDS: methylPREDNISolone SUCC 125 MG VIAL 60 MG IVP (07:55)
[2023-06-28 08:04] VITALS: BP 136/79; PULSE 81; RESP 20; TEMP 36.5; O2SAT 92
--- NOTE | 2023-06-28 10:10 | PDOC.CMPRO ---
Date of service: 06/28/23 Time of Service: 10:11 Care Management Progress Note Progress Note Text Progress Note Text: S/O: A: Sonny is a 53 year old male admitted to [facility] on 06/24/23 for failed o/p therapy of RLE cellulitis. P: Anticipate Sonny will return home once medically cleared. His will drive him home via private vehicle when ready. He will follow up with his PCP and discharge plan of care. CM will continue to follow.
--- NOTE | 2023-06-28 10:57 | DSE_ITS ---
Date of service: 06/28/23 Time of Service: 11:49 DS: Diagnosis Discharge Diagnosis (1) Sepsis due to cellulitis: Status: Acute Asessment and Plan: -patient initially admitted with sepsis secondary to failed outpatient therapy o RLE cellulitis -he met sepsis criteria with WBC 17, and temp of 101.3oF with worsening of RLE cellulitis that had been treated with keflex and bactrim -started on vanc and cefepime on admission with improvement in sepsis pathology, pain and erythema -punch biopsy taken due to concerns of ongoing erythema, as well as initiation of prednisone for concerns of vasculitis -patient being discharged with an additional 5 days of PO doxy and amox to cover cellulitis, as well as PO prednisone 40mg daily for an additional 5 days -punch biosy results pending at time of discharge Discharge Plan Disposition Patient Disposition: Home Condition: Stable Discharge Details Reason For Visit: Failed outpatient therapy of RLE cellulitis,PAKO Admit Date/Time: 06/24/23 11:49 Admit Provider: Carlos Olmstead Attending Provider: Carlos Olmstead Primary Care Provider: Kailey Martinez Hospital Course Hospital Course: Patient initially presented with worsening swelling, redness and erythema secondary to failed outpatient therapy for RLE cellulitis for which he met sepsis criteria. He was initially treated with IV vanc and cefepime, but due to concerns of a lack of improvement he was also started on prednisone and had a punch biopsy for concerns for possible vasculitis. Biopsy results were not available at time of discharge, but patient did experience significant improvement. Therefore he is being discharged with a prednisone and PO antibiotics. Home Meds and New Rx's Prescriptions: New amoxicillin 875 mg tablet 875 mg PO BID Qty: 10 0RF doxycycline monohydrate 100 mg capsule 100 mg PO BID 7 Days Qty: 10 0RF prednisone 20 mg tablet 40 mg PO DAILY Qty: 10 0RF Continued amlodipine 2.5 mg tablet 2.5 mg PO DAILY ibuprofen 200 mg capsule 200 mg PO Q6H PRN chlorthalidone 25 mg tablet 25 mg PO DAILY Discontinued cephalexin 500 mg capsule 500 mg PO DAILY Discharge Instructions Instructions: Cellulitis (DC) Stand Alone Forms: Nursing Discharge Form Referrals: Kailey Martinez [Primary Care Provider] - 07/12/23 11:00 am Activity:: Activity as Tolerated Equipment/Supplies:: No Equipment Needed Diet:: As Tolerated Discharge Orders Discharge Orders: Discharge Order (Routine); Ordered 06/28/23 Ordered By: Carlos Olmstead Discharge Data Discharge Date/Time-TO BE ENTERED AT DEPARTURE: 06/28/23 11:44 DS: Summary Time Spent with Patient providing and/or coordinating discharge services: Greater than 30 minutes Status at Discharge Functional status at discharge: independent ambulation Overall status at discharge: patient is back to baseline Mental Status: mental status grossly normal Speech and Movement: speech and movement normal Mood: congruent mood Affect: normal affect Exam Narrative Exam Narrative: Well appearing gentleman laying in bed in no acute distress, AOx4, heart RRR, lungs CTAB, RLE erythema and swelling improved as compared to day of admission with recession from drawn demarcations lines Psych Mental Status: mental status grossly normal Speech and Movement: speech and movement normal Mood: congruent mood Affect: normal affect DS: Data Vitals/I&O Vitals and I&O: Vital Signs Temperature 97.7 F 06/28/23 08:04 Temperature Source Temporal Artery Scan 06/28/23 08:04 Pulse 81 06/28/23 08:04 Pulse Rhythm Regular 06/27/23 10:07 Respiratory Rate 20 06/28/23 08:04 Respiratory Effort Normal, Non-Labored 06/28/23 08:09 Respiratory Depth Normal 06/27/23 10:07 Respiratory Pattern Normal 06/27/23 10:07 Blood Pressure 136/79 06/28/23 08:04 Blood Pressure Position Sitting 06/24/23 08:53 Pulse Oximetry 92 06/28/23 08:04 Oxygen Delivery Method Room Air 06/28/23 08:04 Oxygen Flow Rate 0 06/28/23 08:04 Pain Level 6 06/28/23 08:04 Comment TEMP called over radio 06/24/23 15:34 Intake & Output 06/27/23 06/28/23 06/28/23 17:59 05:59 17:59 Intake Total 650 / 650 300 / 950 800 / 800 Output Total 350 / 350 Balance 650 / 650 -50 / 600 800 / 800 Intake: IV 650 / 650 300 / 950 800 / 800 Output: Urine 350 / 350 Other: Urine Color Yellow Urine Appearance Clear Clear Clear Urine Odor Normal Voiding Methods Urinal Data Completed and Pending Labs on day of discharge: Labs from last 24 hours 06/28/23 06/28/23 06/27/23 06:04 06:04 06:30 WBC 17.36 H RBC 4.78 Hgb 13.7 Hct 40.7 MCV 85 MCH 28.7 MCHC 33.7 RDW 13.0 Plt Count 456 H MPV 9.8 Immature Gran % 2.9 Neutrophils % 80.2 Lymphocytes % 10.7 Monocytes % 5.2 Eosinophils % 0.5 Basophils % 0.5 Nucleated RBC % 0.0 Absolute Neutrophils 13.92 H Absolute Lymphocytes 1.86 Absolute Monocytes 0.90 H Absolute Eosinophils 0.09 Absolute Basophils 0.09 Sodium 132 L Potassium 4.0 Chloride 97 L Carbon Dioxide 26.8 Anion Gap 8.2 BUN 13 Creatinine 1.1 Est GFR (CKD-EPI 2020) 79.77 Glucose 114 H Calcium 9.1 C-Reactive Protein 8.78 H Procalcitonin 0.5 Add-On Test Request 06/27/23 06:30 WBC RBC Hgb Hct MCV MCH MCHC RDW Plt Count MPV Immature Gran % Neutrophils % Lymphocytes % Monocytes % Eosinophils % Basophils % Nucleated RBC % Absolute Neutrophils Absolute Lymphocytes Absolute Monocytes Absolute Eosinophils Absolute Basophils Sodium Potassium Chloride Carbon Dioxide Anion Gap BUN Creatinine Est GFR (CKD-EPI 2020) Glucose Calcium C-Reactive Protein Procalcitonin Add-On Test Request DONE Preliminary micro results at discharge 06/24/23 14:38 Blood Culture - Preliminary Blood NO GROWTH 72 HOURS 06/24/23 14:19 Blood Culture - Preliminary Blood NO GROWTH 72 HOURS PFSH All Active Problems Discharge planning issues (Acute) Hypokalemia (Acute) Sepsis due to cellulitis (Acute) Cellulitis of right lower leg (Acute) Benign essential HTN (Acute) GERD (gastroesophageal reflux disease) (Chronic) Obesity (Chronic) Osteoarthritis of neck (Acute) Hemorrhoids (Acute) Pain in right forearm (Acute) Pain in right shoulder (Acute) Patellar tendinitis, right knee (Acute) Avulsion of left patellar tendon (Acute 07/26/22) Medical History Dental caries Fracture of distal end of left radius and ulna Posttraumatic stress disorder Surgical History History of hernia surgery umbilical and inguinal bilateral Hx of cervical spine surgery 4 fused vertebra Social History Smoking/Tobacco Use Status: Never Smoking risk assessment performed?: Yes Alcohol Intake: current Alcohol Intake frequency: a few times a week Alcohol type: hard liquor Drug use: Occasionally Substance use type: marijuana Details: CBD Gummy 3nights ago Housing: house Current gender identity: male Do you feel safe at home: Yes Do you feel safe in your relationship?: Yes Time Spent with Patient Time Spent with Patient: <45 minutes (35) Time was spent: preparing to see the patient(eg.review tests), obtaining and/or reviewing separately otained hiistory, referring, communicating with other health critical care clinical nurse specialist, indepentently interpreting results, counseling the patient and care coordination
--- NOTE | 2023-06-28 16:12 | PDOC.CMDIS ---
Date of service: 06/28/23 Time of Service: 16:12 LACE Index Scoring Tool Questions: Length of Stay (in days): 4 - 6 Was the patient admitted via the E.D.?: Yes E.D. Visits: 0 Answers: Total Score: 7 Risk of Readmission: Low Risk Care Management Discharge Plan Reason for Hospitalization: Sepsis, failed o/p therapy of RLE cellulitis, PAKO Discharge Plan: Sonny returned home today with no new services. His drove him home via private vehicle. He will follow up with his PCP and discharge plan of care. He is happy to be going home. Patient/Family Education Needs: Review discharge instructions and limitations, discussion of self care needs including ask me three.
--- NOTE | 2023-06-28 16:36 | CHAPLAIN ---
Sonny was up in the chair when I visited yesterday. I introduced myself and offered support. He's in touch with family and feeling bored here, hoping to go home soon.
== END 2023-06-28 11:44 | disposition home or self-care (01) | DRG 872 ==
LOC: ER 11:55 → MS 13:13
PROVIDERS: Family Medicine; Internal Medicine; Nurse Practitioner Acute Care; Nurse Practitioner Family; Admitting Provider Family Medicine; Emergency Provider Emergency Medicine; PCP Physician Assistant; Visit Provider Family Medicine
DX: A41.9 Sepsis, unspecified organism (principal); N17.9 Acute kidney failure, unspecified; L03.115 Cellulitis of right lower limb; I96 Gangrene, not elsewhere classified; E66.9 Obesity, unspecified; E87.6 Hypokalemia; F42.4 Excoriation (skin-picking) disorder; I10 Essential (primary) hypertension; K21.9 Gastro-esophageal reflux disease without esophagitis; M47.812 Spondylosis without myelopathy or radiculopathy, cervical region; Z98.1 Arthrodesis status; F12.90 Cannabis use, unspecified, uncomplicated
CPT/HCPCS: 11104; 11105; 36415; 80048; 84145; 85027; 87040; 87637; 96365; 96368; 96376; 99285; J1650; 71045; 73700; 80202; 83735; 83880; 85025; 86140; 88305; 93971; 99223; 99232; 99233; 99239; J2270; J2930; J3010; J3480

== ENCOUNTER 2023-07-05 11:24 | Inpatient (IN) | payer MEDICAID, SELFPAY ==
[2023-07-05] VITALS (30 sets, daily range): BP systolic 116–143; BP diastolic 70–105; PULSE 55–82; RESP 18; TEMP 36.8; O2SAT 83–98
[2023-07-05 11:57] LABS: Abs Immature Grans 0.03 10^3/uL (0.0-0.06); Absolute Basophil Count 0.09 10^3/uL (0.0-0.2); Absolute Eosinophil Count 0.22 10^3/uL (0.0-0.7); Absolute Monocyte Count 0.76 10^3/uL (0.1-0.8); Absolute Neutrophil Count 5.72 10^3/uL (1.2-6.7); Eosinophils % 2.4; HCT 40.8 % (40.0-50.0); HGB 13.4 g/dL (13.5-17.5); Immature Grans % 0.3; Lactate 1.2 mmol/L (0.6-1.4); Lymphocytes % 25.2; MCH 27.9 pg (27.0-33.0); MCHC 32.8 % (32.0-36.0); MCV 85 fL (80-95); MPV 9.2 fL (8.0-11.0); Monocytes % 8.3; Neutrophils % 62.8; Platelet Count 408 10^3/uL (130-400); RBC 4.81 10^6/uL (4.36-5.78); RDW 12.9 % (11.8-14.1); RDW-SD 40.1 fL; WBC 9.12 10^3/uL (4.4-10.8)
[2023-07-05 12:18] LABS: ALT 46 U/L (16-63); AST 19 U/L (15-37); Alkaline Phosphatase 84 U/L (46-116); Anion Gap 6.1 mmol/L (3-11); BUN 19 mg/dL (7-18); Bilirubin, Total 0.6 mg/dL (0.2-1.0); CO2 30.9 mmol/L (21.0-32.0); CREATININE 1.2 mg/dL (0.70-1.30); Chloride 100 mmol/L (98-107); Estimated GFR 71.86 (mL/min/1.73m2); Glucose 116 mg/dL (74-106); Potassium 3.1 mmol/L (3.5-5.1); Sodium 137 mmol/L (136-145); Total Protein 8.3 g/dL (6.4-8.2)
--- NOTE | 2023-07-05 12:30 | DI.US_ITS ---
Exam(s) US LOWER EXTREMITY VENOUS RT EXAM: US LOWER EXTREMITY VENOUS RT CLINICAL HISTORY: swelling, pain TECHNIQUE: Right lower extremity venous ultrasound performed using grayscale, color-flow, and spectr al Doppler analysis. COMPARISON: US US LOWER EXTREMITY VENOUS RT from 06/25/2023 FINDINGS: The right common femoral, femoral and popliteal veins demonstrate normal compressibility, augmentatio n, and color Doppler. The posterior tibial vein ins are patent. The saphenofemoral junction is unrem arkable. There is no evidence of a Hough cyst. There are heterogeneously enlarged inguinal lymph no ivonne. The largest measures 2.8 x 1.2 cm. IMPRESSION: 1. No evidence of a right lower extremity DVT. 2. Enlarged heterogeneous right inguinal lymph nodes. DATA REPOSITORY:
[2023-07-05] MEDS: POTASSIUM CHLORIDE 20 MEQ, POTASSIUM CHLORIDE 10 MEQ 30 MEQ PO (12:46)
[2023-07-05] MEDS: PIPERACILLIN/TAZO 4.5 GM in Normal Saline 100 ML IVPB (12:46)
--- NOTE | 2023-07-05 13:12 | ED.GENADUL_ITS ---
Discharge Plan Disposition Patient Disposition: Admit to [facility] Discharge Details Chief Complaint: Cellulitis Clinical Impression: Cellulitis of right lower leg Admit Date/Time: 07/05/23 14:03 Admit Provider: Santino Camejo Attending Provider: Santino Camejo Primary Care Provider: Kailey Martinez ED Provider: Christopher Eid Discharge Data Discharge Date/Time-TO BE ENTERED AT DEPARTURE: 07/05/23 15:59 Medical Decision Making 53yo male recently hospitalized for sepsis secondary to RLE cellulitis, discharged on antibiotics and prednisone, recently completed antiobic course with improvement in cellulitis, now with worsening swelling, pain, warmth and erythema of the RLE. I reviewed prior hospitalization record. Punch biopsy was performed and not consistent with vasculitis. Concern for recurrent and rapidly progressive cellulitis. Consider MRSA. Plan to initiate broad spectrum coverage with vancomycin and zosyn. Consider DVT and will check ultrasound. Labs reviewed. I called and spoke with cone machine operator hospitalist Dr. Camejo, discussed ED presentation and course. He will admit the patient. US pending at time of admission. Lab Data Lab results reviewed: Yes I reviewed the patient's lab results. Labs: 07/05/23 13:10 Blood Blood Culture - Pending 07/05/23 11:50 Blood Blood Culture - Pending Laboratory Tests Range/Units 07/05/23 11:50 WBC (4.4-10.8) 10^3/uL 9.12 RBC (4.36-5.78) 10^6/uL 4.81 Hgb (13.5-17.5) g/dL 13.4 L Hct (40.0-50.0) % 40.8 MCV (80-95) fL 85 MCH (27.0-33.0) pg 27.9 MCHC (32.0-36.0) % 32.8 RDW (11.8-14.1) % 12.9 Plt Count (130-400) 10^3/uL 408 H MPV (8.0-11.0) fL 9.2 Immature Gran % 0.3 Neutrophils % 62.8 Lymphocytes % 25.2 Monocytes % 8.3 Eosinophils % 2.4 Basophils % 1.0 Nucleated RBC % (0.0-0.3) % 0.0 Absolute Neutrophils (1.2-6.7) 10^3/uL 5.72 Absolute Lymphocytes (1.2-3.4) 10^3/uL 2.30 Absolute Monocytes (0.1-0.8) 10^3/uL 0.76 Absolute Eosinophils (0.0-0.7) 10^3/uL 0.22 Absolute Basophils (0.0-0.2) 10^3/uL 0.09 VBG Lactate (0.6-1.4) mmol/L 1.2 Sodium (136-145) mmol/L 137 Potassium (3.5-5.1) mmol/L 3.1 L Chloride (98-107) mmol/L 100 Carbon Dioxide (21.0-32.0) mmol/L 30.9 Anion Gap (3-11) mmol/L 6.1 BUN (7-18) mg/dL 19 H Creatinine (0.70-1.30) mg/dL 1.2 Est GFR (CKD-EPI 2020) (mL/min/1.73m2) 71.86 Glucose (74-106) mg/dL 116 H Calcium (8.5-10.1) mg/dL 9.0 Total Bilirubin (0.2-1.0) mg/dL 0.6 AST (15-37) U/L 19 ALT (16-63) U/L 46 Alkaline Phosphatase (46-116) U/L 84 C-Reactive Protein (0.0-0.3) mg/dL 4.76 H Total Protein (6.4-8.2) g/dL 8.3 H Albumin (3.4-5.0) g/dL 3.0 L Procalcitonin ng/mL < 0.1 HPI General Mode of arrival: ambulatory . Date/Time Provider Initiated Documentation: 07/05/23 11:37 . Limitations to Documentation: no limitations . Information obtained by: patient . HPI Narrative: 53-year-old male recently hospitalized for sepsis secondary to cellulitis of the right lower extremity, discharged on prednisone and oral antibiotic, returns today with worsening inflammation of the right lower extremity. Patient notes his leg infection had improved dramatically while on antibiotics. He recently completed antibiotic course and inflammation has worsened today. He notes redness, warmth, pain and swelling of the right lower leg. Patient notes weeping wounds. He denies associated fever. Related Data Home Medications Medication Instructions Recorded Confirmed ibuprofen 200 mg capsule 200 mg PO Q6H PRN 08/15/22 07/05/23 amlodipine 2.5 mg tablet 2.5 mg PO DAILY 11/15/22 07/05/23 chlorthalidone 25 mg tablet 25 mg PO DAILY 12/08/22 07/05/23 allopurinol 100 mg tablet 100 mg PO DAILY 07/05/23 07/05/23 Allergies Allergy/AdvReac Type Severity Reaction Status Date / Time cat dander Allergy Unverified 07/05/23 11:35 acetaminophen [From Percocet] AdvReac skin Verified 07/05/23 11:35 oxycodone [From Percocet] AdvReac skin Verified 07/05/23 11:35 General Stated Complaint: Cellulitis KIMBERLEE: 3 Review of Systems All systems reviewed & are unremarkable except as noted in HPI and below Constitutional Constitutional: Denies fever(s) Integumentary/Breasts Skin/Breast: Reports as per HPI PFSH All Active Problems (Updated 07/05/23 @ 22:21 by Christopher Eid MD) Hypokalemia (Acute) Cellulitis of right lower leg (Acute) Benign essential HTN (Acute) GERD (gastroesophageal reflux disease) (Chronic) Obesity (Chronic) Osteoarthritis of neck (Acute) Hemorrhoids (Acute) Pain in right forearm (Acute) Pain in right shoulder (Acute) Patellar tendinitis, right knee (Acute) Avulsion of left patellar tendon (Acute 07/26/22) Medical History Posttraumatic stress disorder Dental caries Fracture of distal end of left radius and ulna Surgical History History of hernia surgery umbilical and inguinal bilateral Hx of cervical spine surgery 4 fused vertebra Social History Smoking/Tobacco Use Status: Never Smoking risk assessment performed?: Yes Alcohol Intake: current Alcohol Intake frequency: a few times a week Alcohol type: hard liquor Drug use: Occasionally Substance use type: marijuana Details: CBD Gummy 3nights ago Housing: house Current gender identity: male Do you feel safe at home: Yes Do you feel safe in your relationship?: Yes Exam Const General: cooperative and no acute distress HENMT Mouth: moist mucous membranes Eyes Conjunctivae: normal conjunctivae Sclera: normal sclerae Resp Auscultation: clear to auscultation bilaterally, no rales, no rhonchi and no wheezes Cardio Rate: regular rate and not tachycardic Rhythm: regular rhythm Skin Rashes: rashes noted (see below) Neuro General: patient alert, patient awake and tone normal Extrem Right lower extremity: lower leg Details: erythema, non-pitting edema, warmth and other (weeping ulcers ant lower leg with surrounding erythema extending proximally to medial thigh) and foot Details: vascular exam Details: dorsalis pe dis pulse present (2+) Course Vital Signs Vital signs: Vital Signs Temperature 36.8 C 07/05/23 11:28 Pulse 82 07/05/23 11:28 Respiratory Rate 18 07/05/23 11:28 Blood Pressure 128/70 07/05/23 11:28 Pulse Oximetry 96 07/05/23 11:28 Temperature 36.8 C 07/05/23 11:28 Temperature Source Skin 07/05/23 11:28 Pulse 82 07/05/23 11:28 Respiratory Rate 18 07/05/23 11:28 Respiratory Effort Normal 07/05/23 11:31 Blood Pressure 128/70 07/05/23 11:28 Blood Pressure Position Sitting 07/05/23 11:28 Pulse Oximetry 96 07/05/23 11:28 Oxygen Delivery Method Room Air 07/05/23 11:28 Oxygen Flow Rate 0 07/05/23 11:28 Lab/Test Results Lab/Test Results: 07/05/23 11:50 Blood Blood Culture - Pending 07/05/23 11:37 Blood Blood Culture - Pending Laboratory Tests Range/Units 07/05/23 11:50 WBC (4.4-10.8) 10^3/uL 9.12 RBC (4.36-5.78) 10^6/uL 4.81 Hgb (13.5-17.5) g/dL 13.4 L Hct (40.0-50.0) % 40.8 MCV (80-95) fL 85 MCH (27.0-33.0) pg 27.9 MCHC (32.0-36.0) % 32.8 RDW (11.8-14.1) % 12.9 Plt Count (130-400) 10^3/uL 408 H MPV (8.0-11.0) fL 9.2 Immature Gran % 0.3 Neutrophils % 62.8 Lymphocytes % 25.2 Monocytes % 8.3 Eosinophils % 2.4 Basophils % 1.0 Nucleated RBC % (0.0-0.3) % 0.0 Absolute Neutrophils (1.2-6.7) 10^3/uL 5.72 Absolute Lymphocytes (1.2-3.4) 10^3/uL 2.30 Absolute Monocytes (0.1-0.8) 10^3/uL 0.76 Absolute Eosinophils (0.0-0.7) 10^3/uL 0.22 Absolute Basophils (0.0-0.2) 10^3/uL 0.09 VBG Lactate (0.6-1.4) mmol/L 1.2 Sodium (136-145) mmol/L 137 Potassium (3.5-5.1) mmol/L 3.1 L Chloride (98-107) mmol/L 100 Carbon Dioxide (21.0-32.0) mmol/L 30.9 Anion Gap (3-11) mmol/L 6.1 BUN (7-18) mg/dL 19 H Creatinine (0.70-1.30) mg/dL 1.2 Est GFR (CKD-EPI 2020) (mL/min/1.73m2) 71.86 Glucose (74-106) mg/dL 116 H Calcium (8.5-10.1) mg/dL 9.0 Total Bilirubin (0.2-1.0) mg/dL 0.6 AST (15-37) U/L 19 ALT (16-63) U/L 46 Alkaline Phosphatase (46-116) U/L 84 Total Protein (6.4-8.2) g/dL 8.3 H Albumin (3.4-5.0) g/dL 3.0 L
--- NOTE | 2023-07-05 13:23 | W.PM.HP.N ---
Date of service: 07/05/23 Time of Service: :23 Assessment and Plan Assessment and plan (1) Cellulitis of right lower leg: Status: Acute Assessment and plan: Recurrent. Will readmit to medical surgical acute for treatment with IV antibiotics started on Zyvox and Zosyn day 1. Continue elevation. He has not had fever hemodynamically stable with normal white count and his CRP still trending downward Punch biopsy was negative for vasculitis no steroids indicated (2) Benign essential HTN: Status: Acute Assessment and plan: -continue home amlodipine -hold home chlorthalidone (3) Hypokalemia: Status: Acute Assessment and plan: Will replete and follow (4) Discharge planning issues: Status: Resolved Assessment and plan: DVT prophylaxis: enoxaparin anticipate discharge to home with no services. discussed with Dr Camejo History of Present Illness History of Present Illness Chief Complaint: right lower extremity cellulitis, recurrent Narrative: This is a morbidly obese male patient no history of diabetes mellitus who was recently treated outpatient and then inpatient for failed outpatient treatment of a right lower extremity cellulitis. Outpatient initially he was on Bactrim and cephalexin after 4 days progressively worsen so presented here for evaluation he was admitted under hospitalist services receiving vancomycin and cefepime without significant improvement in his symptoms. We obtained a surgical consult punch biopsy did not show evidence of vasculitis but these results were not present on day of discharge so he was discharged on a burst of steroids and down step to doxycycline. He completed his antibiotics and steroids yesterday but today has worsening symptoms so represented to the emergency department for evaluation. He was given vancomycin and hospitalist services was contacted for admission. Plan is to admit to [facility] for treatment with IV antibiotics to include Zyvox and Zosyn. Review of Systems All systems reviewed & are unremarkable except as noted in HPI and below PFSH All Active Problems (Updated 07/05/23 @ 20:36 by Candy Murrieta NP) Hypokalemia (Acute) Cellulitis of right lower leg (Acute) Benign essential HTN (Acute) GERD (gastroesophageal reflux disease) (Chronic) Obesity (Chronic) Osteoarthritis of neck (Acute) Hemorrhoids (Acute) Pain in right forearm (Acute) Pain in right shoulder (Acute) Patellar tendinitis, right knee (Acute) Avulsion of left patellar tendon (Acute 07/26/22) Medical History Dental caries Fracture of distal end of left radius and ulna Posttraumatic stress disorder Surgical History History of hernia surgery umbilical and inguinal bilateral Hx of cervical spine surgery 4 fused vertebra Social History Smoking/Tobacco Use Status: Never Smoking risk assessment performed?: Yes Alcohol Intake: current Alcohol Intake frequency: a few times a week Alcohol type: hard liquor Drug use: Occasionally Substance use type: marijuana Details: CBD Gummy 3nights ago Housing: house Current gender identity: male Do you feel safe at home: Yes Do you feel safe in your relationship?: Yes Meds Allergies and Home Medications Allergies Allergy/AdvReac Type Severity Reaction Status Date / Time cat dander Allergy Unverified 07/05/23 11:35 acetaminophen [From Percocet] AdvReac skin Verified 07/05/23 11:35 oxycodone [From Percocet] AdvReac skin Verified 07/05/23 11:35 Home Medications Medication Instructions Recorded Confirmed Type ibuprofen 200 mg capsule 200 mg PO Q6H PRN 08/15/22 07/05/23 History amlodipine 2.5 mg tablet 2.5 mg PO DAILY 11/15/22 07/05/23 History chlorthalidone 25 mg tablet 25 mg PO DAILY 12/08/22 07/05/23 History allopurinol 100 mg tablet 100 mg PO DAILY 07/05/23 07/05/23 History Exam Const General: cooperative and no acute distress Nutritional Appearance: obese HENMT Head: normal to inspection, normocephalic and atraumatic Face and sinus: normal facial exam Mouth: oral mucosae normal Chest Chest: normal inspection of the chest Resp Effort & Inspection: normal respiratory effort Auscultation: clear to auscultation bilaterally Cardio Rate: regular rate Rhythm: regular rhythm Skin Lesions: lesion noted (Right lower extremity) Rashes: rashes noted (Right lower extremity) Neuro General: patient alert, patient awake and patient oriented x3 Extrem General: normal to inspection and pedal edema on the right Results Labs 07/05/23 11:50 07/05/23 11:50 Labs: Laboratory Results - last 24 hr 07/05/23 11:50 WBC 9.12 RBC 4.81 Hgb 13.4 L Hct 40.8 MCV 85 MCH 27.9 MCHC 32.8 RDW 12.9 Plt Count 408 H MPV 9.2 Immature Gran % 0.3 Neutrophils % 62.8 Lymphocytes % 25.2 Monocytes % 8.3 Eosinophils % 2.4 Basophils % 1.0 Nucleated RBC % 0.0 Absolute Neutrophils 5.72 Absolute Lymphocytes 2.30 Absolute Monocytes 0.76 Absolute Eosinophils 0.22 Absolute Basophils 0.09 VBG Lactate 1.2 Sodium 137 Potassium 3.1 L Chloride 100 Carbon Dioxide 30.9 Anion Gap 6.1 BUN 19 H Creatinine 1.2 Est GFR (CKD-EPI 2020) 71.86 Glucose 116 H Calcium 9.0 Total Bilirubin 0.6 AST 19 ALT 46 Alkaline Phosphatase 84 Total Protein 8.3 H Albumin 3.0 L Last Vital Signs Temp 36.8 C 07/05/23 11:28 Pulse 82 07/05/23 11:28 Resp 18 07/05/23 11:28 BP 128/70 07/05/23 11:28 Pulse Ox 96 07/05/23 11:28 Time Spent Time spent with Patient: <40 minutes Time was spent: preparing to see the patient(eg.review tests), obtaining and/or reviewing separately otained hiistory, ordering medications,tests, procedures and indepentently interpreting results
[2023-07-05 13:49] LABS: C-Reactive Protein 4.76 mg/dL (0.0-0.3)
[2023-07-05] MEDS: VANCOMYCIN/WATER (PEG) 2 GM/400 ML BAG IV (13:56)
[2023-07-05 14:08] LABS: Procalcitonin < 0.1 ng/mL
[2023-07-05] MEDS: Normal Saline Flush 10 ML SYR IVP ×3 (16:42→19:19)
[2023-07-05] MEDS: Enoxaparin 40 MG/0.4 ML SYR SC (17:35)
[2023-07-05] MEDS: LINEZOLID 600 MG/300 ML BAG 300 MG IVPB (17:35)
[2023-07-05] MEDS: traMADol 50 MG TAB PO (17:46)
[2023-07-05] MEDS: PIPERACILLIN/TAZO 3.375 GM in Normal Saline 50 ML IVPB (19:07)
[2023-07-05] MEDS: Ketorolac 15 MG/ML VIAL IVP (19:19)
[2023-07-06] MEDS: PIPERACILLIN/TAZO 3.375 GM in Normal Saline 50 ML IVPB ×4 (00:06→18:20)
[2023-07-06] MEDS: traMADol 50 MG TAB PO ×2 (00:06→08:58)
[2023-07-06] MEDS: Ketorolac 15 MG/ML VIAL IVP ×2 (02:13→09:45)
[2023-07-06] MEDS: Normal Saline Flush 10 ML SYR IVP ×3 (02:13→16:12)
[2023-07-06] MEDS: LINEZOLID 600 MG/300 ML BAG 300 MG IVPB ×2 (05:15→17:12)
[2023-07-06 06:24] LABS: Abs Immature Grans 0.04 10^3/uL (0.0-0.06); Absolute Eosinophil Count 0.28 10^3/uL (0.0-0.7); Absolute Lymphocyte Count 1.49 10^3/uL (1.2-3.4); Absolute Monocyte Count 0.76 10^3/uL (0.1-0.8); Absolute Neutrophil Count 7.13 10^3/uL (1.2-6.7); Eosinophils % 2.9; HCT 40.4 % (40.0-50.0); HGB 13.2 g/dL (13.5-17.5); Immature Grans % 0.4; Lymphocytes % 15.2; MCH 28.1 pg (27.0-33.0); MCHC 32.7 % (32.0-36.0); MCV 86 fL (80-95); MPV 9.2 fL (8.0-11.0); Monocytes % 7.8; Neutrophils % 72.7; Platelet Count 376 10^3/uL (130-400); RDW 12.9 % (11.8-14.1); RDW-SD 40.6 fL
[2023-07-06 06:57] LABS: ALT 37 U/L (16-63); AST 21 U/L (15-37); Albumin 2.8 g/dL (3.4-5.0); Alkaline Phosphatase 66 U/L (46-116); Anion Gap 4.4 mmol/L (3-11); BUN 16 mg/dL (7-18); Bilirubin, Total 0.6 mg/dL (0.2-1.0); CO2 29.6 mmol/L (21.0-32.0); CREATININE 1.2 mg/dL (0.70-1.30); Calcium 8.8 mg/dL (8.5-10.1); Chloride 100 mmol/L (98-107); Estimated GFR 71.86 (mL/min/1.73m2); Glucose 115 mg/dL (74-106); Potassium 3.1 mmol/L (3.5-5.1); Sodium 134 mmol/L (136-145)
[2023-07-06 08:11] VITALS: BP 124/72; PULSE 78; RESP 18; TEMP 37.3; O2SAT 96
[2023-07-06 08:23] VITALS: O2SAT 96
[2023-07-06] MEDS: amLODIPine 2.5 MG TAB PO (08:58)
[2023-07-06] MEDS: Allopurinol 100 MG TAB PO (08:59)
--- NOTE | 2023-07-06 10:51 | PDOC.CMIN ---
Date of service: 07/06/23 Time of Service: 10:51 Care Management Initial Assmt Initial Assessment REASON FOR HOSPITALIZATION:: Right Lower leg Cellulitis PREVIOUS FUNCTIONAL STATUS/SOCIAL/FAMILY SUPPORTS:: Sonny lives in [place] with his , Taylor. They have 8 children; 5 are grown and out of the house, 2 still live in the house, and one recently, in April 2023. 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 His is a case management coordinator for the same agency (not his case management coordinator). He is independent at baseline in the community. CURRENT FUNCTIONAL STATUS:: Sonny was sitting up in bed when CM met with him. He stated that he felt ready for discharge on his last admission, and felt that the oral antibiotics were helping. He stated that he finished the antibiotic course and a day later his leg started hurting. He reported that per MD, there is a surgical consult as well as a wound consult. He is being treated with IV antibiotics at this time; his antibiotic course is unclear, blood cultures are pending. CM will continue to follow. ADVANCE DIRECTIVES:: Not on file; CM will offer forms. Has patient been provided with info about the portal/API?: Yes Did the patient sign up for the portal?: No CODE STATUS:: Full Code INSURANCE COVERAGE / FINANCIAL ISSUES:: [employer] CURRENT HOME/COMMUNITY SERVICES/EQUIPMENT:: None PRIMARY CARE PHYSICIAN:: Kailey Martinez POTENTIAL DISCHARGE NEEDS:: Follow up appointments. PATIENT/FAMILY EDUCATION NEEDS:: Review discharge instructions and limitations, discussion of self care needs including ask me three. ANTICIPATED BARRIERS TO DISCHARGE:: Recurrent infection; may require ad terminal makeup operator IV abx, depending on blood culture results. TRANSPORTATION:: Via private vehicle by his family. PLAN:: Anticipate Sonny will return home once medically cleared. His will drive him home via private vehicle when ready. He will follow up with his PCP and discharge plan of care. CM will continue to follow. PFSH All Active Problems (Updated 07/05/23 @ 22:21 by Christopher Eid MD) Hypokalemia (Acute) Cellulitis of right lower leg (Acute) Benign essential HTN (Acute) GERD (gastroesophageal reflux disease) (Chronic) Obesity (Chronic) Osteoarthritis of neck (Acute) Hemorrhoids (Acute) Pain in right forearm (Acute) Pain in right shoulder (Acute) Patellar tendinitis, right knee (Acute) Avulsion of left patellar tendon (Acute 07/26/22) Medical History Posttraumatic stress disorder Dental caries Fracture of distal end of left radius and ulna Surgical History History of hernia surgery umbilical and inguinal bilateral Hx of cervical spine surgery 4 fused vertebra Social History Smoking/Tobacco Use Status: Never Smoking risk assessment performed?: Yes Alcohol Intake: current Alcohol Intake frequency: a few times a week Alcohol type: hard liquor Drug use: Occasionally Substance use type: marijuana Details: CBD Gummy 3nights ago Housing: house Current gender identity: male Do you feel safe at home: Yes Do you feel safe in your relationship?: Yes Readmission Within the Past 30 Days Yes or No: Yes Date of First Admission Date of 1st Admission: 06/24/23 Date of this Admission Date of Admission: 07/05/23 This admission was: Through ED Office Visit Since 1st Admission Have you seen your PCP in the office since discharge?: No Date of Scheduled Appointment: 07/12/23 I. Interview patient and/or Family Difficulty reaching your doctor or getting an office appt?: No Have you had trouble purchasing/ or taking medication?: No How do you take your medications and set up your pills?: independently Have you had trouble with getting meals at home?: No Did you feel ready for discharge when you left the last time: Yes Reason there were no orders at discharge: Independent at discharge; no services needed. Did you call your physician beore you came to the ED?: Yes Did your physician tell you to come in?: Yes ED visits How many ED visits in the past 12 months: 1 Assessment for Readmission Summary of readmission circumstances, based upon interviews: Sonny stated that he felt ready for discharge on his last admission, and completed his oral antibiotic course. A day or two later his leg started to hurt, and he called his PCP, who told him to return to the ED. He is being treated with IV antibiotics; blood cultures are pending, which will help determine his antibiotic course. CM will continue to follow.
--- NOTE | 2023-07-06 11:37 | W.PM.PROGNOT ---
Date of Service Date of service: 07/06/23 Time of Service: 11:37 Assessment and Plan Assessment and plan (1) Cellulitis of right lower leg: Status: Acute Assessment and plan: Recurrent. continue on Zyvox and Zosyn day 2. Continue elevation. He has not had fever hemodynamically stable with normal white count and his CRP still trending downward Punch biopsy was negative for vasculitis no steroids indicated (2) Benign essential HTN: Status: Acute Assessment and plan: -continue home amlodipine -hold home chlorthalidone (3) Hypokalemia: Status: Acute Assessment and plan: Will replete and follow (4) Discharge planning issues: Status: Resolved Assessment and plan: DVT prophylaxis: enoxaparin anticipate discharge to home with no services. discussed with Dr Whitaker Subjective Subjective Patient reports: no new complaints, still having pain, tolerating liquids well, tolerating a regular diet, voiding w/o difficulty and afebrile; denies nausea or shortness of breath Exam Const General: cooperative and no acute distress Nutritional Appearance: obese HENMT Head: normal to inspection, normocephalic and atraumatic Face and sinus: normal facial exam Mouth: oral mucosae normal Chest Chest: normal inspection of the chest Resp Effort & Inspection: normal respiratory effort Auscultation: clear to auscultation bilaterally Cardio Rate: regular rate Rhythm: regular rhythm Skin Lesions: lesion noted (Right lower extremity) Rashes: rashes noted (Right lower extremity) Neuro General: patient alert, patient awake and patient oriented x3 Extrem General: normal to inspection and pedal edema on the right Objective Last Vital Signs Temp 37.3 C 07/06/23 08:11 Pulse 78 07/06/23 08:11 Resp 18 07/06/23 08:11 BP 124/72 07/06/23 08:11 Pulse Ox 96 07/06/23 08:23 Laboratory Results - last 24 hr 07/05/23 07/06/23 11:50 06:00 WBC 9.12 9.80 RBC 4.81 4.70 Hgb 13.4 L 13.2 L Hct 40.8 40.4 MCV 85 86 MCH 27.9 28.1 MCHC 32.8 32.7 RDW 12.9 12.9 Plt Count 408 H 376 MPV 9.2 9.2 Immature Gran % 0.3 0.4 Neutrophils % 62.8 72.7 Lymphocytes % 25.2 15.2 Monocytes % 8.3 7.8 Eosinophils % 2.4 2.9 Basophils % 1.0 1.0 Nucleated RBC % 0.0 0.0 Absolute Neutrophils 5.72 7.13 H Absolute Lymphocytes 2.30 1.49 Absolute Monocytes 0.76 0.76 Absolute Eosinophils 0.22 0.28 Absolute Basophils 0.09 0.10 VBG Lactate 1.2 Sodium 137 134 L Potassium 3.1 L 3.1 L Chloride 100 100 Carbon Dioxide 30.9 29.6 Anion Gap 6.1 4.4 BUN 19 H 16 Creatinine 1.2 1.2 Est GFR (CKD-EPI 2020) 71.86 71.86 Glucose 116 H 115 H Calcium 9.0 8.8 Total Bilirubin 0.6 0.6 AST 19 21 ALT 46 37 Alkaline Phosphatase 84 66 C-Reactive Protein 4.76 H Total Protein 8.3 H 8.0 Albumin 3.0 L 2.8 L Procalcitonin < 0.1 Time Spent with Patient Time Spent with Patient: 35-49 minutes Time was spent: preparing to see the patient(eg.review tests), ordering medications,tests, procedures and indepentently interpreting results
[2023-07-06] MEDS: HYDROmorphone 2 MG/ML SYR 0.5 MG IVP (11:54)
[2023-07-06] MEDS: Potassium Chloride 20 MEQ TABCR PO ×2 (11:54→16:11)
[2023-07-06 14:42] VITALS: BP 147/77; PULSE 89; RESP 19; TEMP 36.5; O2SAT 94
--- NOTE | 2023-07-06 15:47 | CHAPLAIN ---
Sonny remembered that we had met last when he was admitted for the same thing. He's back for more IV antibiotics. He's frustrated about being back. According to Care Management notes, he lives in [place] with his , with two kids still at home and other older and living out of the house. 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
[2023-07-06] MEDS: Ketorolac 30 MG/ML VIAL IVP ×2 (16:12→22:08)
--- NOTE | 2023-07-06 16:14 | WOUNDCONS_ITS ---
Date of service: 07/06/23 Time of Service: 14:45 Wound Initial Evaluation Narrative Narrative: Patient is a 53 yom. PMX of HTN, Hypokalemia, Morbid obesity. He had been here recently for treatment of RLE Celluitis. He had finished oral treatment Sunday, by , The area became red, blistered, and hot. He returns, and has been started on empiric abx treatment again. Patient is a good historian and stated he felt it had resolved as leg appeared normal Sunday and Sunday. He appears to be in pain and wa noted to have trouble ambulating on the affected extremity. Patient signs consent. H&P, labs and allergies were reviewed Body Four View: 2 1. Cellulitis Wound Right Tib/Fib(lower leg): Wound Type: Other (blistered and open rash) Wound General Appearance: Reddened, Draining and Bleeding Wound Bed Greatest Portion: Dusky Red Wound Bed Lesser Portion: Pale [place] Wound Surrounding Tissue Appearance: Dark Red Percent of Wound Bed Granulated/Red: 50 Wound Length: 31.8 cm Wound Width: 46 cm Wound Depth: 0.1 cm Wound Drainage Amount: Minimal Wound Drainage Odor: Other (mild) Wound Drainage Description: Serous and Bloody Wound Topical Solution/Irrigant: Antibiotic Irrigant (Anasept) Wound Debridement Method: Other (Debrisoft) Wound Debridement Result: Other ( skin remains) Wound Debridement Amount of Tissue Removed: Minimal Circulation, Sensation, Motion Edema Degree: 4+ Peripheral Pulse Strength: Weak Capillary Refill: Greater than 3 seconds Sensation Description: Numbness, Tingling, Pain and Other (with palpation and debriding) Skin Temperature: Warm Skin Color: Erythema EDWARD Comment:: not tolerated Pain Pain Level: 5 Pain Scale Used: Visual Analog Scale 0-10 Pain Description: Burning Pain Duration (Hours): 0 Pain Duration/Frequency: With Palpation and Other (and debridement) Wound Summary Wound Summary: Wound is blistered and painful. Will clean daily with Anasept and Debrisoft to remove material. Will wrap leg daily to keep dry and protect bedding from drainage. Photo Photo: Treatment/Dressing Change Topicals/Ointments: None Dressing Types: ABD Pad and Adaptic (Contact Layer) Nutrition Education Reviewed Nutrition Education: Yes Recomendation Recomendation:: Right lower leg. [place] with Anasept, Allow to dwell for two minutes. Scrub with Debrisoft sponge. Cover blistered areas with Adaptic. Cover area with ABD pads. Wrap with Kerlix. Keep elevated as tolerated. Change daily or PRN. Physcian/Nurse Practioner Notified: Yes Treatment Time Time Total Time Spent with Patient: 45 minutes For: For:: 1 week
[2023-07-06] MEDS: Enoxaparin 40 MG/0.4 ML SYR SC (17:14)
[2023-07-06 19:16] VITALS: BP 137/69; PULSE 87; RESP 17; TEMP 36.5; O2SAT 94
[2023-07-07] MEDS: PIPERACILLIN/TAZO 3.375 GM in Normal Saline 50 ML IVPB ×5 (00:34→23:27)
[2023-07-07] MEDS: Normal Saline Flush 10 ML SYR IVP ×4 (00:35→18:38)
[2023-07-07] MEDS: LINEZOLID 600 MG/300 ML BAG 300 MG IVPB (05:32)
[2023-07-07 06:29] LABS: Abs Immature Grans 0.02 10^3/uL (0.0-0.06); Absolute Basophil Count 0.07 10^3/uL (0.0-0.2); Absolute Eosinophil Count 0.23 10^3/uL (0.0-0.7); Absolute Lymphocyte Count 1.57 10^3/uL (1.2-3.4); Absolute Monocyte Count 0.74 10^3/uL (0.1-0.8); Absolute Neutrophil Count 6.13 10^3/uL (1.2-6.7); Basophils % 0.8; Eosinophils % 2.6; HCT 36.5 % (40.0-50.0); HGB 12.1 g/dL (13.5-17.5); Immature Grans % 0.2; Lymphocytes % 17.9; MCH 28.4 pg (27.0-33.0); MCHC 33.2 % (32.0-36.0); MCV 86 fL (80-95); MPV 9.2 fL (8.0-11.0); Monocytes % 8.4; Neutrophils % 70.1; Platelet Count 348 10^3/uL (130-400); RBC 4.26 10^6/uL (4.36-5.78); RDW 12.6 % (11.8-14.1); RDW-SD 39.7 fL; WBC 8.76 10^3/uL (4.4-10.8)
[2023-07-07 06:52] LABS: Anion Gap 5.2 mmol/L (3-11); BUN 13 mg/dL (7-18); C-Reactive Protein 7.41 mg/dL (0.0-0.3); CO2 31.8 mmol/L (21.0-32.0); CREATININE 1.2 mg/dL (0.70-1.30); Calcium 8.6 mg/dL (8.5-10.1); Chloride 99 mmol/L (98-107); Estimated GFR 71.86 (mL/min/1.73m2); Glucose 133 mg/dL (74-106); Potassium 3.3 mmol/L (3.5-5.1); Sodium 136 mmol/L (136-145)
[2023-07-07 07:33] VITALS: RESP 18; TEMP 36.4; O2SAT 95
[2023-07-07] MEDS: Potassium Chloride 20 MEQ TABCR PO (08:10)
[2023-07-07] MEDS: Allopurinol 100 MG TAB PO (08:10)
[2023-07-07] MEDS: amLODIPine 2.5 MG TAB PO (08:10)
--- NOTE | 2023-07-07 09:44 | W.PM.PROGNOT ---
Date of Service Date of service: 07/07/23 Time of Service: 09:44 Assessment and Plan Assessment and plan (1) Cellulitis of right lower leg: Status: Acute Assessment and plan: Recurrent. Treatment with IV antibiotics started on Zyvox and Zosyn day 1. MRSA nares negative today, Zyvox stopped. Continue elevation. He has not had fever hemodynamically stable with normal white count and his CRP still trending downward, will repeat in AM Punch biopsy was negative for vasculitis no steroids indicated (2) Benign essential HTN: Status: Acute Assessment and plan: -Will continue home amlodipine -Will hold home chlorthalidone (3) Hypokalemia: Status: Acute Assessment and plan: Repleted today, magnesium 1.8 will replete for a goal of 2.0. will follow in AM (4) Discharge planning issues: Status: Resolved Assessment and plan: DVT prophylaxis:Will continue enoxaparin CM to follow for discharge: anticipate discharge to home with no services. discussed with Dr Whitaker Subjective Subjective Patient reports: no new complaints, feels better, still having pain (The patient reports that pain is well manage with current pain medicine regimen), pain is less (improved with IV ketorolac an Dilaudid for breakthrough), tolerating liquids well, tolerating a regular diet, voiding w/o difficulty, flatus, bowel movement, shortness of breath and afebrile; denies diarrhea, nausea or vomiting Exam Narrative Exam Narrative: Constitutional The patient is lying in bed comfortable and cooperative during the interview, spouse at bedside during counseling The patient is well groomed without acute distress and has obese body habitus HENMT: Head is normocephalic. Facial structures with normal appearance Eyes: Well aligned, intact ROM Neck: Normal ROM but fused vertebrae X4 history, no meningeal signs Neuro:alert and oriented to self, person, place time and situation. No neurological focal deficit Chest:Chest is symmetrical and large in appearance Resp: Normal respiratory pattern, speaks in full sentences, unlabored breathing, clear lung bilaterally Cardio: regular rhythm, S1, S2, no murmur, capillary refill<3 sec., bilateral radial and dorsalis pedis pulses are positive, faint and weaker to right LE with positive erythema and edema 2/3+, cap refill is < 3 sec GI: Abdomen is not distended, soft and non tender, bowel sounds are present : Negative Costovertebral angle tenderness Back/spine/Pelvis: No back tenderness Integumentary: RLE with excoriated skin and ulcers and blisters, improved redness, dressing in place Extremities: strength 5/5 to bilateral lower and upper extremities Psych: RASS 0, congruent mood and normal affect. Objective Last Vital Signs Temp 36.4 C L 07/07/23 07:33 Pulse 87 07/06/23 19:16 Resp 18 07/07/23 07:33 BP 137/69 07/06/23 19:16 Pulse Ox 95 07/07/23 07:33 Laboratory Results - last 24 hr 07/07/23 06:16 WBC 8.76 RBC 4.26 L Hgb 12.1 L Hct 36.5 L MCV 86 MCH 28.4 MCHC 33.2 RDW 12.6 Plt Count 348 MPV 9.2 Immature Gran % 0.2 Neutrophils % 70.1 Lymphocytes % 17.9 Monocytes % 8.4 Eosinophils % 2.6 Basophils % 0.8 Nucleated RBC % 0.0 Absolute Neutrophils 6.13 Absolute Lymphocytes 1.57 Absolute Monocytes 0.74 Absolute Eosinophils 0.23 Absolute Basophils 0.07 Sodium 136 Potassium 3.3 L Chloride 99 Carbon Dioxide 31.8 Anion Gap 5.2 BUN 13 Creatinine 1.2 Est GFR (CKD-EPI 2020) 71.86 Glucose 133 H Calcium 8.6 C-Reactive Protein 7.41 H Time Spent with Patient Time Spent with Patient: >50 minutes Time was spent: preparing to see the patient(eg.review tests), ordering medications,tests, procedures, referring, communicating with other health day care home mother, indepentently interpreting results, counseling the patient and care coordination
[2023-07-07 09:56] LABS: Lab Add On Test DONE
[2023-07-07 10:08] VITALS: O2SAT 95
[2023-07-07 10:11] LABS: Magnesium 1.8 mg/dL (1.8-2.4)
[2023-07-07] MEDS: Ketorolac 30 MG/ML VIAL IVP ×2 (10:31→18:38)
[2023-07-07] MEDS: Potassium Chloride 20 MEQ TABCR 40 MEQ PO ×2 (13:35→17:29)
[2023-07-07 14:23] LABS: MRSA PCR Negative (Negative)
[2023-07-07 15:39] VITALS: BP 142/78; PULSE 80; RESP 18; TEMP 37; O2SAT 96
[2023-07-07] MEDS: Enoxaparin 40 MG/0.4 ML SYR SC (17:29)
[2023-07-07] MEDS: LINEZOLID 600 MG/300 ML BAG 100 MG IVPB (18:36)
[2023-07-07 20:43] VITALS: BP 142/78; PULSE 69; RESP 20; TEMP 37.2; O2SAT 95
[2023-07-07] MEDS: MAGNESIUM SULFATE 2 GM/50 ML BAG IVPB (20:55)
[2023-07-08] MEDS: Ketorolac 30 MG/ML VIAL IVP ×3 (00:50→16:35)
[2023-07-08] MEDS: PIPERACILLIN/TAZO 3.375 GM in Normal Saline 50 ML IVPB ×3 (06:10→17:07)
[2023-07-08 06:45] LABS: Abs Immature Grans 0.03 10^3/uL (0.0-0.06); Absolute Basophil Count 0.09 10^3/uL (0.0-0.2); Absolute Eosinophil Count 0.27 10^3/uL (0.0-0.7); Absolute Lymphocyte Count 1.65 10^3/uL (1.2-3.4); Absolute Monocyte Count 0.68 10^3/uL (0.1-0.8); Absolute Neutrophil Count 5.41 10^3/uL (1.2-6.7); Basophils % 1.1; Eosinophils % 3.3; HCT 38.8 % (40.0-50.0); HGB 12.5 g/dL (13.5-17.5); Immature Grans % 0.4; Lymphocytes % 20.3; MCH 27.8 pg (27.0-33.0); MCHC 32.2 % (32.0-36.0); MCV 86 fL (80-95); MPV 9.2 fL (8.0-11.0); Monocytes % 8.4; Neutrophils % 66.5; Platelet Count 397 10^3/uL (130-400); RDW 12.6 % (11.8-14.1); RDW-SD 40.3 fL; WBC 8.13 10^3/uL (4.4-10.8)
[2023-07-08 07:03] LABS: Anion Gap 5.8 mmol/L (3-11); BUN 12 mg/dL (7-18); CO2 30.2 mmol/L (21.0-32.0); CREATININE 1.2 mg/dL (0.70-1.30); Calcium 8.8 mg/dL (8.5-10.1); Chloride 102 mmol/L (98-107); Estimated GFR 71.86 (mL/min/1.73m2); Glucose 107 mg/dL (74-106); Magnesium 2.3 mg/dL (1.8-2.4); Potassium 3.8 mmol/L (3.5-5.1); Sodium 138 mmol/L (136-145)
[2023-07-08 07:05] LABS: C-Reactive Protein 6.25 mg/dL (0.0-0.3)
[2023-07-08 07:21] VITALS: BP 134/88; PULSE 75; RESP 20; TEMP 36.7; O2SAT 96
[2023-07-08] MEDS: Potassium Chloride 20 MEQ TABCR 40 MEQ PO ×3 (08:22→16:35)
[2023-07-08] MEDS: Allopurinol 100 MG TAB PO (08:22)
[2023-07-08] MEDS: amLODIPine 2.5 MG TAB PO (08:22)
[2023-07-08] MEDS: traMADol 50 MG TAB PO ×2 (09:22→16:35)
--- NOTE | 2023-07-08 11:31 | W.PM.PROGNOT ---
Date of Service Date of service: 07/08/23 Time of Service: 11:31 Assessment and Plan Assessment and plan (1) Cellulitis of right lower leg: Status: Acute Assessment and plan: Continue Zosyn day 2 Continue elevation. Steroids not indicated (2) Benign essential HTN: Status: Acute Assessment and plan: -Continue home amlodipine -Continue to Hold home chlorthalidone (3) Hypokalemia: Status: Acute Assessment and plan: Mag 2.3 Trend (4) DVT prophylaxis: Status: Acute Assessment and plan: Continue enoxaparin (5) Discharge planning issues: Status: Resolved Assessment and plan: CM to follow for discharge: Anticipate discharge to home with no services. discussed with Dr Whitaker Subjective Subjective Patient reports: no new complaints, still having pain, tolerating liquids well, tolerating a regular diet, voiding w/o difficulty, bowel movement and afebrile; denies flatus, diarrhea, nausea or vomiting Interval history since last seen: Sonny reports he is still having pain and asks for pain medicine before it is due, would like to be able to get it more often, he is tolerating it. He stated he has not gotten out of bed and has not walked. Exam Const General: cooperative and no acute distress Nutritional Appearance: obese HENMT Head: normal to inspection, normocephalic and atraumatic Face and sinus: normal facial exam Mouth: oral mucosae normal Chest Chest: normal inspection of the chest Resp Effort & Inspection: normal respiratory effort Auscultation: clear to auscultation bilaterally Cardio Rate: regular rate Rhythm: regular rhythm Skin Lesions: lesion noted (Right lower extremity) Rashes: rashes noted (Right lower extremity) Neuro General: patient alert, patient awake and patient oriented x3 Extrem General: normal to inspection and pedal edema on the right Objective Last Vital Signs Temp 36.7 C 07/08/23 07:21 Pulse 75 07/08/23 07:21 Resp 20 07/08/23 07:21 BP 134/88 07/08/23 07:21 Pulse Ox 96 07/08/23 07:21 Laboratory Results - last 24 hr 07/07/23 07/08/23 12:45 06:05 WBC 8.13 RBC 4.50 Hgb 12.5 L Hct 38.8 L MCV 86 MCH 27.8 MCHC 32.2 RDW 12.6 Plt Count 397 MPV 9.2 Immature Gran % 0.4 Neutrophils % 66.5 Lymphocytes % 20.3 Monocytes % 8.4 Eosinophils % 3.3 Basophils % 1.1 Nucleated RBC % 0.0 Absolute Neutrophils 5.41 Absolute Lymphocytes 1.65 Absolute Monocytes 0.68 Absolute Eosinophils 0.27 Absolute Basophils 0.09 Sodium 138 Potassium 3.8 Chloride 102 Carbon Dioxide 30.2 Anion Gap 5.8 BUN 12 Creatinine 1.2 Est GFR (CKD-EPI 2020) 71.86 Glucose 107 H Calcium 8.8 Magnesium 2.3 C-Reactive Protein 6.25 H MRSA (TEM-PCR) Negative Time Spent with Patient Time Spent with Patient: 25-34 minutes Time was spent: preparing to see the patient(eg.review tests), ordering medications,tests, procedures, referring, communicating with other health neonatal critical care nurse, indepentently interpreting results, counseling the patient and care coordination
[2023-07-08] MEDS: HYDROmorphone 2 MG TAB PO ×2 (12:51→16:36)
[2023-07-08 15:23] VITALS: BP 149/89; PULSE 81; RESP 18; TEMP 37; O2SAT 96
[2023-07-08] MEDS: Enoxaparin 40 MG/0.4 ML SYR SC (16:36)
[2023-07-08 21:06] VITALS: BP 147/85; PULSE 75; RESP 20; TEMP 37.1; O2SAT 98
[2023-07-08] MEDS: Melatonin 3 MG TAB PO (22:04)
[2023-07-09] MEDS: PIPERACILLIN/TAZO 3.375 GM in Normal Saline 50 ML IVPB ×2 (00:05→05:58)
[2023-07-09 07:03] LABS: Abs Immature Grans 0.02 10^3/uL (0.0-0.06); Absolute Eosinophil Count 0.28 10^3/uL (0.0-0.7); Absolute Lymphocyte Count 1.37 10^3/uL (1.2-3.4); Absolute Monocyte Count 0.61 10^3/uL (0.1-0.8); Absolute Neutrophil Count 7.31 10^3/uL (1.2-6.7); Eosinophils % 2.9; HCT 37.9 % (40.0-50.0); HGB 12.5 g/dL (13.5-17.5); Immature Grans % 0.2; Lymphocytes % 14.1; MCH 28.3 pg (27.0-33.0); MCV 86 fL (80-95); MPV 9.3 fL (8.0-11.0); Monocytes % 6.3; Neutrophils % 75.5; Platelet Count 393 10^3/uL (130-400); RBC 4.41 10^6/uL (4.36-5.78); RDW 12.7 % (11.8-14.1); RDW-SD 39.9 fL; WBC 9.69 10^3/uL (4.4-10.8)
[2023-07-09 07:23] LABS: Anion Gap 7.4 mmol/L (3-11); BUN 11 mg/dL (7-18); CO2 27.6 mmol/L (21.0-32.0); Calcium 8.6 mg/dL (8.5-10.1); Chloride 101 mmol/L (98-107); Estimated GFR 89.44 (mL/min/1.73m2); Glucose 102 mg/dL (74-106); Magnesium 1.8 mg/dL (1.8-2.4); Potassium 3.9 mmol/L (3.5-5.1); Sodium 136 mmol/L (136-145)
[2023-07-09 07:30] VITALS: BP 146/76; PULSE 79; RESP 19; TEMP 37.3; O2SAT 95
[2023-07-09] MEDS: Ketorolac 30 MG/ML VIAL IVP ×2 (07:42→16:31)
[2023-07-09] MEDS: traMADol 50 MG TAB PO (07:42)
[2023-07-09] MEDS: Potassium Chloride 20 MEQ TABCR 40 MEQ PO ×3 (07:42→16:27)
[2023-07-09] MEDS: amLODIPine 2.5 MG TAB PO (07:42)
[2023-07-09] MEDS: HYDROmorphone 2 MG TAB PO ×2 (07:42→16:32)
[2023-07-09] MEDS: Allopurinol 100 MG TAB PO (07:42)
[2023-07-09] MEDS: Normal Saline Flush 10 ML SYR IVP (07:43)
--- NOTE | 2023-07-09 10:23 | PDOC.CMPRO ---
Date of service: 07/09/23 Time of Service: : Care Management Progress Note Progress Note Text Progress Note Text: S/O: Chuy was sitting up in his chair when CM met with him. He stated that his weekend went well; he saw the quality assurance specialist, who made recommendations for dressing changes. He stated that he feels that his leg is responding well to the antibiotic that he is on currently. Per report, he will be transitioned to oral antibiotics, possibly today or tomorrow, and will likely be discharged on oral abx. He is agreeable with this plan. CM will continue to follow. A: Sonny is a 53 year old male admitted to [facility] on 07/05/23 for right lower leg cellulitis. P: Anticipate Sonny will return home once medically cleared. His will drive him home via private vehicle when ready. He will follow up with his PCP and discharge plan of care. CM will continue to follow.
[2023-07-09] MEDS: Cephalexin 500 MG CAP PO ×3 (11:21→20:22)
[2023-07-09] MEDS: Sulfameth/Trimeth DS TAB 1 TAB PO ×2 (11:21→20:22)
--- NOTE | 2023-07-09 11:21 | IN_ITS ---
PT Notes Visit Reasons: Right Lower Ext Cellulitis Physical Therapy Inpatient Initial Evaluation Date: 07/09/23 Referring Doctor: Mallory Ryan MD PT Orders: PT CONSULT: Eval and treat Precautions: Fall. Standard. Activity as tolerated. Cellulitis R LE. Patient Profile/Admitting Diagnosis: Sonny is a 53 yo male that presented to the ER on 07/05/23 for for increasing right lower extremity swelling, pain, warmth and erethyma after completing his home antibiotics. He was admitted for further follow up and management. Original onset June 22, 2023 seen at [facility] and given home antibiotics. Follow up at [facility] on 06/24/23 with admission. He reports here 5 days and then went home with antibiotics. Was feeling fairly good until the . 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 Patient is walking back to room from shower at time of consult. He notes knots in right medial knee region that have him worried for a blood clot. Objective: General Observation: Independent mobility, clear headed Mental Status: A&O x3 Pain: 2-3/10 right distal leg ROM: Right Upper Extremity: Shoulder Flexion WFL. Shoulder abduction WFL. Elbow flexion WFL. Wrist flexion WFL. Opening and closing of hand WFL. Left Upper Extremity: Shoulder Flexion WFL. Shoulder abduction WFL. Elbow flexion WFL. Wrist flexion WFL. Opening and closing of hand WFL. Right Lower Extremity: Hip flexion WFL. Hip abduction WFL. Knee flexion WFL. Ankle dorsiflexion WFL. Ankle plantarflexion WFL. Left Lower Extremity: Hip flexion WFL. Hip abduction WFL. Knee flexion WFL. Ankle dorsiflexion WFL. Ankle plantarflexion WFL. Strength: Right Upper Extremity: Shoulder flexors 5/5. Shoulder abductors 5/5. Elbow flexors 5/5. Elbow extensors 5/5. Casino Surveillance Officer strong. Left Upper Extremity: Shoulder flexors 5/5. Shoulder abductors 5/5. Elbow flexors 5/5. Elbow extensors 5/5. Casino Surveillance Officer strong. Right Lower Extremity: Hip flexors 5/5. Knee flexors 5/5. Knee extensors 5/5. Ankle dorsiflexors 5/5. Ankle plantarflexors 5/5. Left Lower Extremity: Hip flexors 5/5. Knee flexors 5/5. Knee extensors 5/5. Ankle dorsiflexors 5/5. Ankle plantarflexors 5/5. Sensation: Intact as to pain and pressure on bilateral lower extremities. Bed Mobility/Transfers: Supine to sit: Independent Sit to supine: Independent Sit to stand: Independent Stand to sit: Independent Bed to chair: Independent Chair to bed: Independent Gait: Ambulated 30 ft independently Stairs: Not assessed, no concerns Balance: Static Sitting: Normal Dynamic Sitting: Normal Static Standing: Normal Dynamic Standing: Good Special Tests: Mobility Limitations Standardized Measure [facility]-PAC 6 clicks Basic Mobility Inpatient Short Form: Raw Score: 24 CMS Score: 0% Informed Consent/Education: Patient instructed in purpose of PT consult and plan of care. Assessment: Patient presents with clinical signs and symptoms consistent with current/admitting of right lower extremity cellulitis. He reports having increased pain over the last few days that was making it difficult to walk. He reports no limitations with mobility at present. He is independent with ambulation and transfers. He is safe to return home without therapy services when medically cleared for discharge. No indication for acute care PT needs at this time and will be discharged from acute care PT. Patient is assessed as a Low complexity based on the following: History: 53 year old male with impairment level findings, functional limitations, and past medical history as indicated above Examination: Demonstrable impairment in strength, balance, and mobility level with underlying impairments and functional limitations as documented above Presentation: Stable Decision Making: Low complexity Plan of Care/Treatment Plan: Evaluation for consult only, no follow up PT Discharge Plan DISCHARGE RECOMMENDATIONS: Home with no services TREATMENT CODE/TIME: 11:00-11:20 (20 minutes), [id number] Thank you for the opportunity to participate in the care of this patient. Lilibeth Guy, PT, DPT, OCS [facility] [place], [place]
[2023-07-09 15:00] VITALS: BP 168/65; PULSE 88; RESP 18; TEMP 37.3; O2SAT 96
[2023-07-09] MEDS: Enoxaparin 40 MG/0.4 ML SYR SC (16:27)
--- NOTE | 2023-07-09 18:12 | PGE_ITS ---
Date of Service Date of service: 07/09/23 Time of Service: 12:00 Assessment and Plan Assessment and plan (1) Cellulitis of right lower leg: Status: Acute Assessment and plan: DC Zosyn - start oral cephalexin and Bactrim Continue elevation. Steroids not indicated (2) Benign essential HTN: Status: Acute Assessment and plan: -Continue home amlodipine -Continue chlorthalidone (3) Hypokalemia: Status: Acute Assessment and plan: K 3.9 Mag 1.8 Trend (4) DVT prophylaxis: Status: Acute Assessment and plan: Continue enoxaparin (5) Discharge planning issues: Status: Resolved Assessment and plan: CM to follow for discharge: Anticipate discharge to home with no services. discussed with Dr Whitaker Subjective Subjective Patient reports: no new complaints, tolerating liquids well, tolerating a regular diet, bowel movement and afebrile; denies flatus, diarrhea, nausea, vomiting or shortness of breath Interval history since last seen: Awake, alert, no new complaints, family in Exam Const General: cooperative and no acute distress Nutritional Appearance: obese HENMT Head: normal to inspection, normocephalic and atraumatic Face and sinus: normal facial exam Mouth: oral mucosae normal Chest Chest: normal inspection of the chest Resp Effort & Inspection: normal respiratory effort Auscultation: clear to auscultation bilaterally Cardio Rate: regular rate Rhythm: regular rhythm Skin Lesions: lesion noted (Right lower extremity) Rashes: rashes noted (Right lower extremity) Neuro General: patient alert, patient awake and patient oriented x3 Extrem General: normal to inspection and pedal edema on the right Objective Last Vital Signs Temp 37.3 C 07/09/23 15:00 Pulse 88 07/09/23 15:00 Resp 18 07/09/23 15:00 BP 168/65 H 07/09/23 15:00 Pulse Ox 96 07/09/23 15:00 Laboratory Results - last 24 hr 07/09/23 06:25 WBC 9.69 RBC 4.41 Hgb 12.5 L Hct 37.9 L MCV 86 MCH 28.3 MCHC 33.0 RDW 12.7 Plt Count 393 MPV 9.3 Immature Gran % 0.2 Neutrophils % 75.5 Lymphocytes % 14.1 Monocytes % 6.3 Eosinophils % 2.9 Basophils % 1.0 Nucleated RBC % 0.0 Absolute Neutrophils 7.31 H Absolute Lymphocytes 1.37 Absolute Monocytes 0.61 Absolute Eosinophils 0.28 Absolute Basophils 0.10 Sodium 136 Potassium 3.9 Chloride 101 Carbon Dioxide 27.6 Anion Gap 7.4 BUN 11 Creatinine 1.0 Est GFR (CKD-EPI 2020) 89.44 Glucose 102 Calcium 8.6 Magnesium 1.8 Time Spent with Patient Time Spent with Patient: 35-49 minutes Time was spent: preparing to see the patient(eg.review tests), ordering medications,tests, procedures, referring, communicating with other health long term care phlebotomist, indepentently interpreting results, counseling the patient and care coordination
[2023-07-09] MEDS: Melatonin 3 MG TAB PO (20:22)
[2023-07-10 05:42] VITALS: BP 153/90; PULSE 79; RESP 18; TEMP 37.2; O2SAT 95
[2023-07-10 07:08] LABS: Abs Immature Grans 0.03 10^3/uL (0.0-0.06); Absolute Basophil Count 0.11 10^3/uL (0.0-0.2); Absolute Eosinophil Count 0.34 10^3/uL (0.0-0.7); Absolute Lymphocyte Count 1.55 10^3/uL (1.2-3.4); Absolute Monocyte Count 0.59 10^3/uL (0.1-0.8); Absolute Neutrophil Count 4.68 10^3/uL (1.2-6.7); Basophils % 1.5; Eosinophils % 4.7; HGB 12.5 g/dL (13.5-17.5); Immature Grans % 0.4; Lymphocytes % 21.2; MCH 28.1 pg (27.0-33.0); MCHC 32.9 % (32.0-36.0); MCV 85 fL (80-95); MPV 9.1 fL (8.0-11.0); Monocytes % 8.1; Neutrophils % 64.1; Platelet Count 404 10^3/uL (130-400); RBC 4.45 10^6/uL (4.36-5.78); RDW 12.5 % (11.8-14.1)
[2023-07-10 07:21] LABS: Anion Gap 4.9 mmol/L (3-11); BUN 12 mg/dL (7-18); C-Reactive Protein 5.51 mg/dL (0.0-0.3); CO2 28.1 mmol/L (21.0-32.0); CREATININE 1.1 mg/dL (0.70-1.30); Calcium 9.2 mg/dL (8.5-10.1); Chloride 102 mmol/L (98-107); Estimated GFR 79.77 (mL/min/1.73m2); Glucose 95 mg/dL (74-106); Magnesium 1.9 mg/dL (1.8-2.4); Potassium 4.2 mmol/L (3.5-5.1); Sodium 135 mmol/L (136-145)
[2023-07-10 07:36] VITALS: BP 150/100; PULSE 77; RESP 20; TEMP 36.9; O2SAT 94
[2023-07-10] MEDS: amLODIPine 2.5 MG TAB PO (07:38)
[2023-07-10] MEDS: Allopurinol 100 MG TAB PO (07:38)
[2023-07-10] MEDS: Cephalexin 500 MG CAP PO ×3 (07:38→15:32)
[2023-07-10] MEDS: Sulfameth/Trimeth DS TAB 1 TAB PO (07:38)
[2023-07-10] MEDS: Potassium Chloride 20 MEQ TABCR 40 MEQ PO ×3 (07:39→17:17)
[2023-07-10] MEDS: Ibuprofen 800 MG TAB PO (07:49)
--- NOTE | 2023-07-10 10:30 | W.PM.DS.N ---
Date of service: 07/10/23 Time of Service: 10:30 DS: Diagnosis Discharge Diagnosis (1) Cellulitis of right lower leg: Status: Acute (2) Benign essential HTN: Status: Acute (3) Hypokalemia: Status: Acute (4) DVT prophylaxis: Status: Acute (5) Discharge planning issues: Status: Resolved Discharge Plan Disposition Patient Disposition: Home Condition: Stable Discharge Details Reason For Visit: Right Lower Ext Cellulitis Admit Date/Time: 07/05/23 14:03 Admit Provider: Santino Camejo Attending Provider: aSntino Camejo Primary Care Provider: Kailey Martinez Hospital Course Hospital Course: This 53 years old? male patient with ?history essential hypertension, gastroesophageal reflusx disease and morbid obesity, and failed outpatient treatment of right lower extremity cellulitis with Bactrim and cephalexin, inpatient treatment with vancomycin and cefepime, then doxycycline and steroid burst ?presented to the ED at [facility] on 07/05/2023 for evaluation of worsening symptoms. Previous punch biopsy ruled out vasculitis. In the Ed, the patient received vancomycin and the hospitalist agreed to admit him as an inpatient to the medical surgical floor. Duting his stay, The patient received Linezolid and Piperacillin-Tazobactam IV. The MRSA swab was negative and the blood and wound cultures did not grow any pathogens; the Zyvox was discontinued. Wound consult completed and recommendations are to complete daily dressing change with Anasept with 2-minute dwelling time, scrubbing with debrisoft sponge, apply adaptic to blisters, cover with ABD pads then kerlix wrap.Limb elevation is also recommended. The patient's wifeife was educated on daily dressing change and verbalized that she can completed them. He was briefly switch to Bactrim and cephalexin but due to outpatient failure of prior mentioned therapy, improvement with Piperacillin-Tazobactam IV and consultation with pharmacy, the patient will be discharged home on Augmentin oral for 10 days and follow-up with his PCP within 7 days. Open wound area will benefit of topical application of mupirocin cream with ongoing daily dressing change at home. The patient is also aware that he would benefit from Bio-K plus probiotics. The plan was discuss with Dr. Whitaker [place] Meds and New Rx's Prescriptions: New Bio-K plus 50 billion cell capsule,delayed release(DR/EC) 1 cap PO DAILY Qty: 10 0RF amoxicillin-pot clavulanate 875-125 mg tablet 1 tab PO Q12H Qty: 20 0RF mupirocin calcium 2 % cream 1 applic topical DAILY Qty: 30 0RF Rx Instructions: Apply to open area of right lower leg with dressing change Continued amlodipine 2.5 mg tablet 2.5 mg PO DAILY ibuprofen 200 mg capsule 200 mg PO Q6H PRN chlorthalidone 25 mg tablet 25 mg PO DAILY allopurinol 100 mg tablet 100 mg PO DAILY Patient Comments: TAKE ONE TABLET BY MOUTH EVERY DAY Discharge Instructions Stand Alone Forms: Nursing Discharge Form Referrals: Kailey Martinez [Primary Care Provider] - 07/17/23 10:45 am (Follow-up with PCP post discharge for right lower extremity cellulitis within 7 days) Activity:: Activity as Tolerated Equipment/Supplies:: Dressing supplies Diet:: As Tolerated Discharge Orders Discharge Orders: Discharge Order (Routine); Ordered 07/10/23 Ordered By: Jena Bailey Discharge Data Discharge Date/Time-TO BE ENTERED AT DEPARTURE: 07/10/23 17:20 DS: Summary Time Spent with Patient providing and/or coordinating discharge services: Greater than 30 minutes Status at Discharge Functional status at discharge: independent ambulation Overall status at discharge: patient is progressing back to baseline Mental Status: mental status grossly normal Speech and Movement: speech and movement normal Mood: congruent mood Affect: normal affect Exam Narrative Exam Narrative: Constitutional The patient is lying in bed comfortable and cooperative during the interview. The patient is without acute distress HENMT: Head is atraumatic, normocephalic, no lymphadenopathy. Facial structures with normal appearance Eyes: Well aligned Neck: Normal ROM, no meningeal signs Neuro:alert and oriented to self, person, place time and situation. No neurological focal deficit Chest:Chest is symmetrical and normal appearance Resp: Normal respiratory pattern, speaks in full sentences, unlabored breathing, clear lung bilaterally Cardio: regular rhythm, S1, S2, capillary refill<3 sec., bilateral radial and dorsalis pedis pulses are positive, palpable, mild non-pitting right lower ext. swelling and erythema, dressing in place DCI GI: Abdomen is not distended, soft and non tender, bowel sounds are present : no bladder distension Back/spine/Pelvis: No back tenderness, normal alignment Integumentary: Right lower ext cellulitis, decreased redness and swelling Extremities: strength 5/5 to bilateral lower and upper extremities Psych: RASS 0, congruent mood and normal affect. Psych Mental Status: mental status grossly normal Speech and Movement: speech and movement normal Mood: congruent mood Affect: normal affect DS: Data Vitals/I&O Vitals and I&O: Vital Signs Temperature 36.9 C 07/10/23 07:36 Temperature Source Tympanic 07/10/23 07:36 Pulse 77 07/10/23 07:36 Pulse Rhythm Irregular 07/10/23 05:42 Respiratory Rate 20 07/10/23 07:36 Respiratory Effort Normal 07/10/23 05:42 Respiratory Depth Normal 07/10/23 05:42 Respiratory Pattern Normal 07/10/23 05:42 Blood Pressure 150/100 H 07/10/23 07:36 Blood Pressure Mean 91 07/05/23 15:32 Blood Pressure Position Sitting 07/05/23 11:28 Pulse Oximetry 94 07/10/23 07:36 Oxygen Delivery Method Room Air 07/10/23 07:36 Oxygen Flow Rate 0 07/10/23 07:36 Pain Level 0 07/10/23 07:49 Comment Charge nurse notified of pt.'s BP. Pt. to receive cardiac medication per the MAR. 07/10/23 07:36 Intake & Output 07/09/23 07/09/23 07/10/23 11:59 23:59 11:59 Intake Total 340 / 630 290 / 630 550 / 550 Output Total 875 / 1225 350 / 1225 1800 / 1800 Balance -535 / -595 -60 / -595 -1250 / -1250 Intake: IV 100 / 150 50 / 150 Oral 240 / 480 240 / 480 550 / 550 Output: Urine 875 / 1225 350 / 1225 1800 / 1800 Other: Urine Color Yellow Yellow Yellow Urine Appearance Clear Clear Clear Urine Odor Normal Comment Void x1 in the urinal. Voiding Methods Urinal Urinal Urinal Data Completed and Pending Labs on day of discharge: Labs from last 24 hours 07/10/23 06:40 WBC 7.30 RBC 4.45 Hgb 12.5 L Hct 38.0 L MCV 85 MCH 28.1 MCHC 32.9 RDW 12.5 Plt Count 404 H MPV 9.1 Immature Gran % 0.4 Neutrophils % 64.1 Lymphocytes % 21.2 Monocytes % 8.1 Eosinophils % 4.7 Basophils % 1.5 Nucleated RBC % 0.0 Absolute Neutrophils 4.68 Absolute Lymphocytes 1.55 Absolute Monocytes 0.59 Absolute Eosinophils 0.34 Absolute Basophils 0.11 Sodium 135 L Potassium 4.2 Chloride 102 Carbon Dioxide 28.1 Anion Gap 4.9 BUN 12 Creatinine 1.1 Est GFR (CKD-EPI 2020) 79.77 Glucose 95 Calcium 9.2 Magnesium 1.9 C-Reactive Protein 5.51 H Preliminary micro results at discharge 07/05/23 13:10 Blood Culture - Preliminary Blood NO GROWTH 96 HOURS 07/05/23 11:50 Blood Culture - Preliminary Blood NO GROWTH 96 HOURS PFSH All Active Problems (Updated 07/08/23 @ 18:46 by Mallory Ryan NP) DVT prophylaxis (Acute) Hypokalemia (Acute) Cellulitis of right lower leg (Acute) Benign essential HTN (Acute) GERD (gastroesophageal reflux disease) (Chronic) Obesity (Chronic) Osteoarthritis of neck (Acute) Hemorrhoids (Acute) Pain in right forearm (Acute) Pain in right shoulder (Acute) Patellar tendinitis, right knee (Acute) Avulsion of left patellar tendon (Acute 07/26/22) Medical History Posttraumatic stress disorder Dental caries Fracture of distal end of left radius and ulna Surgical History History of hernia surgery umbilical and inguinal bilateral Hx of cervical spine surgery 4 fused vertebra Social History Smoking/Tobacco Use Status: Never Smoking risk assessment performed?: Yes Alcohol Intake: current Alcohol Intake frequency: a few times a week Alcohol type: hard liquor Drug use: Occasionally Substance use type: marijuana Details: CBD Gummy 3nights ago Housing: house Current gender identity: male Do you feel safe at home: Yes Do you feel safe in your relationship?: Yes Time Spent with Patient Time Spent with Patient: >85 minutes Time was spent: preparing to see the patient(eg.review tests), ordering medications,tests, procedures, referring, communicating with other health animal care worker, indepentently interpreting results, counseling the patient and care coordination
--- NOTE | 2023-07-10 10:33 | PDOC.CMDIS ---
Date of service: 07/10/23 Time of Service: 10:33 LACE Index Scoring Tool Questions: Length of Stay (in days): 4 - 6 Was the patient admitted via the E.D.?: Yes E.D. Visits: 1 Answers: Total Score: 8 Risk of Readmission: Low Risk Care Management Discharge Plan Reason for Hospitalization: Right Lower leg Cellulitis Discharge Plan: Sonny will return home today with no new services. His will drive him home via private vehicle when ready. He will follow up with his PCP and discharge plan of care. He is happy to be going home. Patient/Family Education Needs: Review discharge instructions and limitations, discussion of self care needs including ask me three.
[2023-07-10] MEDS: hydrOXYzine HCL 10 MG TAB PO (11:05)
[2023-07-10 11:48] VITALS: BP 153/97; PULSE 74
[2023-07-10 14:47] VITALS: BP 140/84; PULSE 70; RESP 18; TEMP 36.9; O2SAT 93
[2023-07-10] MEDS: Enoxaparin 40 MG/0.4 ML SYR SC (17:18)
== END 2023-07-10 17:20 | disposition home or self-care (01) | DRG 603 ==
LOC: ER 15:51 → MS 15:59
PROVIDERS: Nurse Practitioner Acute Care; Nurse Practitioner Family; Admitting Provider Internal Medicine; Emergency Provider Student in an Organized Health Care Education/Training Program; PCP Physician Assistant; Visit Provider Internal Medicine
DX: L03.115 Cellulitis of right lower limb (principal); Z68.43 Body mass index [BMI] 50.0-59.9, adult; L97.819 Non-pressure chronic ulcer of other part of right lower leg with unspecified severity; E87.6 Hypokalemia; I10 Essential (primary) hypertension; K21.9 Gastro-esophageal reflux disease without esophagitis; M76.52 Patellar tendinitis, left knee; M47.812 Spondylosis without myelopathy or radiculopathy, cervical region; K64.8 Other hemorrhoids; F43.10 Post-traumatic stress disorder, unspecified; F12.90 Cannabis use, unspecified, uncomplicated; E66.01 Morbid (severe) obesity due to excess calories
CPT/HCPCS: 00123; 36415; 80048; 80053; 84145; 85027; 87040; 87641; 96365; 96368; 97161; 99222; 99285; J1650; 83605; 83735; 85025; 86140; 93971; 99232; 99233; 99239; J1170; J1885; J2020; J2543

== ENCOUNTER 2025-04-29 16:16 | Outpatient (REF) | payer SELFPAY ==
[2025-04-29 20:45] LABS: ALT 34 U/L (16-63); AST 27 U/L (15-37); Albumin 3.9 g/dL (3.4-5.0); Alkaline Phosphatase 77 U/L (46-116); Anion Gap 9.6 mmol/L (3-11); BUN 16 mg/dL (7-18); Bilirubin, Total 0.5 mg/dL (0.2-1.0); CO2 27.4 mmol/L (21.0-32.0); Calcium 8.6 mg/dL (8.5-10.1); Chloride 106 mmol/L (98-107); Estimated GFR 70.98 (mL/min/1.73m2); Glucose 91 mg/dL (74-106); Magnesium 2.1 mg/dL (1.8-2.4); Potassium 4.0 mmol/L (3.5-5.1); Sodium 143 mmol/L (136-145); Total Protein 7.6 g/dL (6.4-8.2)
== END 2025-04-29 16:17 | disposition home or self-care (01) ==
LOC: NCHCN 16:16
PROVIDERS: PCP Physician Assistant; Visit Provider Nurse Practitioner Family
DX: I49.9 Cardiac arrhythmia, unspecified (principal)
CPT/HCPCS: 80053; 83735

== ENCOUNTER 2025-07-31 18:47 | Outpatient (REF) | payer MEDICAID, SELFPAY ==
[2025-07-31 19:15] LABS: TSH (W/Ref FT4) 1.80 uIU/mL (0.36-3.74)
== END 2025-07-31 18:48 | disposition home or self-care (01) ==
LOC: NCHCN 18:47
PROVIDERS: PCP Physician Assistant; Visit Provider Physician Assistant
DX: I49.9 Cardiac arrhythmia, unspecified (principal)
CPT/HCPCS: 84443